=== PATIENT | male | born 1945 | race Caucasian/White ===

== ENCOUNTER → 2017-12-01 09:53 | Outpatient (CLI) | payer MEDICARE, BC ==
[2016-04-30 22:05] VITALS: BMI 31.8
[~2017-12-01 09:53] MED LIST: ASPIRIN81 MG PO; EFFIENT10 MG PO; GLUCOPHAGE1000 MG PO; HUMALOG 30100 UNITS/ SC; HYDROCHLOROTHIA25 MG; HYDROCHLOROTHIA25 MG PO; ICAPS AREDS1 TAB.SA PO; INVOKANA300 MG PO; LEVEMIR100 U/M1 SQ; LIPITOR40 MG PO; LOTREL 10-40 M1 EACH PO; PLAVIX75 MG PO; PRILOSEC20 MG PO; PROAIR HFA8.5 GM INH; TOPROL XL50 MG PO; TRIGLIDE160 MG PO
== END | disposition home or self-care (01) ==
LOC: D.CT 09:53
DX: C91.10 Chronic lymphocytic leukemia of B-cell type not having achieved remission (principal)

== ENCOUNTER 2018-10-04 09:34 | Outpatient (CLI) | payer MEDICARE, BC ==
[~2018-10-04] VITALS: Ht 193 cm; Wt 108.2 kg
--- NOTE | ~2018-10-04 | HEMODYNAMI ---
PATIENT:JESSICA CHURCH MEDICAL RECORD: [id number] : 43 LOCATION:DDaraCAT ADMISSION DATE: 10/04/18 Generatedon:10/04/201811:21 Patient name: JESSICA CHURCH Patient #: [id number] SSN: : 1945 Date of study: 10/04/2018 Page: Of Hemodynamic Procedure Report Patient Data Patient Demographics Procedure consent was obtained First Name: JESSICA Gender: Male Last Name: LYNNETTE : 1945 [facility] Initial: N Age: 73 year(s) Patient #: [id number] Race: Additional ID: [id number] Contact details [address]: [address] [place] [address] rd State: [place] City: [place] Zip code: [address] Past Medical History Allergies: No known allergies Admission Admission Data Admission Date: 10/04/2018 Admission Time: 9:34 Height (in.): 74 BSA: 2.31 (m2) Height (cm.): 187.96 BMI: 29.79 (kg/m2) Weight (lbs.): 232 Weight (kg.): 105.23 Lab Results Lab Result Date: 10/04/2018 Lab Result Time: 0:00 Biochemistry Name Units Result Min Max BUN mg/dl 27 --(----)-* 7 18 Creatinine mg/dl 1.1 --(--*-)-- 0.6 1.3 CBC Name Units Result Min Max Hematocrit % 32.2 *-(----)-- 42 54 Hemoglobin g/dl 10.4 *-(----)-- 13.5 17.5 Procedure Procedure Types Cath Procedure Diagnostic Procedure LHC LHC w/Coronaries w/Grafts Peripheral Cath Diagnostic Procedure Grain Operations Manager Peripheral Procedures Rgfsm-Ilxlmbe-Sjx-Off Procedure Description Procedure Date Procedure Date: 10/04/2018 Procedure Start Time: 11:08 Procedure End Time: 11:17 Procedure Staff Name Function Charles Van MD Performing Physician Evy Don RT Monitor Gumaro Bo RT Scrub Marta Carmona RN Nurse Procedure Data Cath Procedure Fluoroscopy Diagnostic fluoroscopy Total fluoroscopy Time: 1.7 time: 1.7 min min Diagnostic fluoroscopy Total fluoroscopy dose: 363 dose: 363 mGy mGy Contrast Material Contrast Material Type Amount (ml) Isovue 300 102 Entry Location Entry Primary Successful Side Size Upsize Upsize Entry Closure Succes sful Closure Location (Fr) 1 (Fr) 2 (Fr) Remarks Device Remarks Femoral Right 5 Fr Exoseal artery Estimated blood loss: 5 ml Diagnostic catheters Device Type Used For End Catheter Placement MULTIPACK Pigtail 5 Fr Procedure catheter MULTIPACK JL 4.0 5Fr Procedure catheter MULTIPACK 3DRC 5Fr Procedure catheter DIAGNOSTIC AR2 MOD 5 Fr Procedure catheter ([id number]) Procedure Complications No complications Procedure Medications Medication Administration Route Dosage 0.9% NaCl I.V. 100 ml/hr Oxygen etCO2 Nasal cannula 2 l/min Lidocaine 2% added to field 20 Heparin Flush Bag added to field 2 bags (1000units/500ml NS) Versed I.V. 2 mg Fentanyl I.V. 50 mcg Hemodynamics Rest BSA: 2.31 (m2) HGB: 10.4 (g/dl) O2 Consumption: Estimated: 261.11 (ml/min) O2 Co nsumption indexed: Estimated:113.03 (ml/min/m) Heart Rate: 65 (bpm) Snapshots Pre Cath Intra NCS Post Cath Vital Signs Time Heart Resp SPO2 etCO2 NIBP (mmHg) Rhythm Pain Sedation Rate (ipm) (%) (mmHg) Status Level (bpm) 11:02:39 59 10 98 33 130/60(104) NSR 0 (11) 10(A) , No pain 11:06:59 69 16 100 19.3 128/55(85) NSR 0 (11) 10(A) , No pain 11:11:17 63 18 100 36.4 111/48(93) NSR 0 (11) 9(A) , No pain 11:15:35 81 17 100 34.9 105/57(76) NSR 0 (11) 10(A) , No pain Medications Time Medication Route Dose Verified Delivered Reason Notes Eff ectiveness by by 11:06:38 0.9% NaCl I.V. 100 Charles Lozano used for ml/hr Carlota Carmona rubber attacher 11:06:44 Oxygen etCO2 2 Charles Marta used for Nasal l/min Carlota Carmona procedure cannula RN 11:06:49 Lidocaine 2% added 20ml Charles Charles for local to vial Carlota Van MD anesthetic field 11:06:54 Heparin Flush added 2 Charles Charles used for Bag to bags Carlota Van MD procedure (1000units/500ml field NS) 11:07:10 Versed I.V. 2 mg Charles Marta for Carlota Carmona sedation RN 11:07:16 Fentanyl I.V. 50 Charles Marta for mcg Carlota Carmona sedation cloth mercerizer back tender Log Time Note 10:28:46 Patient Height : 74 inches 10:28:49 Patient Weight : 232 lbs 10:28:52 Signed procedure consent form obtained from patient. 10:28:53 Diagnostic Cath status Elective 10:28:55 Time tracking: Regular hours (M-F 7:00 - 5:00) 10:29:00 Plan of Care:Hemodynamics will remain stable., Cardiac rhythm will remain stable., Comfort level will be maintained., Respiratory function will remain adequate., Patient/ family verbilizes understanding of procedure., Procedure tolerated without complication., Recovers from procedure without complications.. 10:29:36 Patient allergic to No known allergies 10:34:21 Lab Result : Creatinine 1.1 mg/dl 10:34:21 Lab Result : BUN 27 mg/dl 10:34:21 Lab Result : Hemoglobin 10.4 g/dl 10:34:21 Lab Result : Hematocrit 32.2 % 10:37:44 Gumaro Bo RT(R) sent for patient. Start room use. 10:50:44 H&P Date Dictated: 09/26/2018 Within 30 days and on chart., H&P Addendum completed by physician on day of procedure. (MUST COMPLETE FOR ALL OUTPATIENTS). 10:56:42 Patient received from Pre/Post Procedure Room to CCL 1 Alert and oriented. Tansferred to table in Supine position. 10:56:43 Warm blankets applied, and alix hugger turned on for patient comfort. 10:56:44 Correct patient and procedure confirmed by team. 10:56:44 ECG and BP/O2 sat monitors applied to patient. 11:01:28 Vital chart was started 11:04:28 Baseline sample Acquired. 11:04:35 Rhythm: atrial fibrillation 11:04:36 Full Disclosure recording started 11:04:37 Pre-procedure instructions explained to patient. 11:04:37 Pre-op teaching completed and patient verbalized understanding. 11:04:39 Family in patients room. 11:04:40 Patient NPO since Midnight. 11:04:43 Is patient on blood thinner?Yes 11:05:04 ELIQUIS HELD SINCE TUESDAY 11:05:06 Patient diabetic? Yes. 11:05:13 PATIENT TAKES INSULIN 11:05:19 Previous problem with sedation/anesthesia? No ? 11:05:20 Snore? Yes 11:05:21 Sleep apnea? Yes 11:05:21 Deviated septum? No 11:05:22 Opens mouth fully? No 11:05:23 Sticks out tongue? Yes 11:05:25 Airway obstruction? No ? 11:05:26 Dentures? No ? 11:05:29 Pre procedure: right dorsailis pedis pulse 1+ Palpable, but thready & weak; easily obliterated 11:05:34 IV patent on arrival in left hand with 0.9% NaCl at O. 11:05:36 --------ALL STOP TIME OUT------ 11:05:37 Final Timeout: patient, procedure, and site verified with staff and physician. All members of the team are in agreement. 11:05:38 Right groin site verified by team. 11:05:47 Maximum allowable Isovue 300 dose 300.ml. Physician notified. (300ml for normal creatinines. For patients with creatinine of 1.7 or higher multiply weight(kg) x 5 divided by creatinine.) 11:05:50 Fire Safety Assessment: A--An alcohol-based skin anteseptic being used preoperatively., C--Open oxygen or nitrous oxide is being used., D--An ESU, laser, or fiber-optic light is being used. 11:05:54 Physical assessment completed. ASA score P 2 - A patient with mild systemic disease as per Charles Van MD. 11:05:57 Sedation plan: IV Moderate Sedation Medication:Versed, Fentanyl 11:06:38 0.9% NaCl 100 ml/hr I.V. was administered by Marta Carmona RN; used for procedure; 11:06:44 Oxygen 2 l/min etCO2 Nasal cannula was administered by Marta Carmona RN; used for procedure; 11:06:49 Lidocaine 2% 20ml vial added to field was administered by Charles Van MD; for local anesthetic; 11:06:49 Use device set Femoral Dx 11:06:52 ACIST Syringe (66683) opened to sterile field. 11:06:53 Bag Decanter (2002S) opened to sterile field. 11:06:54 Heparin Flush Bag (1000units/500ml NS) 2 bags added to field was administered by Charles Van MD; used for procedure; 11:07:05 Medline Cath Pack ([id number]) opened to sterile field. 11:07:06 DIAGNOSTIC WIRE .035 260cm J wire (549206) opened to sterile field. 11:07:10 Versed 2 mg I.V. was administered by Marta Carmona RN; for sedation; 11:07:15 ACIST Hand Control (37142) opened to sterile field. 11:07:15 ACIST Manifold (22446) opened to sterile field. 11:07:16 Fentanyl 50 mcg I.V. was administered by Marta Carmona RN; for sedation; 11:07:17 DIAGNOSTIC Multipack 5Fr catheter set ([id number]) opened to sterile field. 11:07:23 Tegaderm 4 x 4 (1626W) opened to sterile field. 11:08:36 SHEATH 5FR Lawai (GAD406) opened to sterile field. 11:08:40 Procedure started. 11:08:42 Zero performed for pressure channel P1 11:08:45 Local anesthetic to right femoral artery with Lidocaine 2% by Charles Van MD.INITIAL ACCESS ONLY 11:08:57 A 5 Fr sheath was inserted into the Right Femoral artery 11:09:32 Zero performed for pressure channel P1 11:09:44 A MULTIPACK Pigtail 5 Fr catheter was advanced over the wire and used for Procedure. 11:09:49 LV gram done using HUGO 11:09:51 Injector settings: Ml/sec: 10, Volume: 20, 11:10:06 Procedure type changed to Cath procedure, Diagnostic procedure, LHC, LHC w/Coronaries w/Grafts, Peripheral Cath Diagnostic Procedure, Grain Operations Manager Peripheral Procedures, Gxame-Hnzfktr-Uuu-Off 11:10:15 EF : 30 % 11:10:23 CATH PULLED DOWN FOR AFRO 11:10:49 Abdominal angiogram w/ runoff was performed. 11:11:10 Right leg runoff performed. 11:11:12 Left leg runoff performed. 11:11:15 Catheter removed. 11:11:45 A MULTIPACK JL 4.0 5Fr catheter was advanced over the wire and used for Procedure. 11:12:32 LCA angiography performed. 11:12:33 Catheter removed. 11:12:37 A MULTIPACK 3DRC 5Fr catheter was advanced over the wire and used for Procedure. 11:13:03 GRIFFIN to LAD angiography performed. 11:13:19 RCA angiography performed. 11:13:20 Catheter removed. 11:13:27 A DIAGNOSTIC AR2 MOD 5 Fr catheter ([id number]) was advanced over the wire and used for Procedure. 11:14:28 SVG to RCA occluded. 11:14:30 SVG to Circ occluded. 11:14:32 SVG to Diag occluded. 11:14:34 Catheter removed. 11:14:35 EXOSEAL 5Fr (EX500) opened to sterile field. 11:15:06 Sheath removed intact; hemostasis achieved with Exoseal to the Right Femoral artery. 11:15:09 Procedure ended.(Physican Out) 11:15:51 Fluoroscopy time 01.70 minutes. 11:15:54 Fluoroscopy dose: 363 mGy 11:15:54 Flurop Dose total: 363 11:15:57 Contrast amount:Isovue 300 102ml. 11:16:00 Sharps counted by scrub and verified by R.N. 11:16:03 Post-op/insertion site Right Femoral artery dressed using a 4 x 4 and Tegaderm. 11:16:10 Post-procedure physical assessment completed. ASA score P 2 - A patient with mild systemic disease as per Charles Van MD. 11:16:28 PATIENT IN AND OUT OF AFIB 11:16:32 Estimated blood loss: 5 ml 11:16:34 Post procedure instruction explained to patient.Patient verbalizes understanding. 11:16:34 Patient needs reinforcement of post procedure teaching. 11:17:15 Procedure and supply charges have been captured, reviewed, submitted and are correct. 11:17:22 Procedure Complication : No complications 11:17:24 Vital chart was stopped 11:17:24 See physician's report for complete and final results. 11:17:43 Report given to Pre/Post Procedure Room. 11:17:46 Patient transfered to Pre/Post Procedure Room with Bed. 11:17:47 Procedure ended. 11:17:47 Full Disclosure recording stopped 11:18:06 End room use (Document Last) Device Usage Item Name Manufacture Quantity Catalog Hospital Part Current Minimal L ot# / Number Charge Number Stock Stock Serial# Code ACIST Acist 1 83387 167010 582686 488970 20 Syringe Medical (93054) Systems Inc Bag Microtek 1 2001S 495855 03075 154145 5 Decanter Medical Inc. () Medline Medline 1 [id number] 075659 24205 429563 5 Cath Pack ([id number]) DIAGNOSTIC St Antelmo 1 926585 778666 728360 925068 30 WIRE .035 260cm J wire (637529) ACIST Hand Acist 1 04021 472978 599460 517299 5 Control Medical (06443) Systems Inc ACIST Acist 1 65286 274210 042640 819227 5 Manifold Medical (79836) Systems Inc DIAGNOSTIC Cardinal 1 [id number] 208858 50231 010146 30 Multipack Health 5Fr catheter set (BR9668) Tegaderm 4 3M 1 1626W 049095 145717 808477 5 x 4 (1626W) SHEATH 5FR Terumo 1 ZQZ909 950986 704079 535622 5 Lawai (TKE743) MULTIPACK Cardinal 1 759921 5 Pigtail 5 Health Fr catheter MULTIPACK Cardinal 1 193462 5 JL 4.0 5Fr Health catheter MULTIPACK Cardinal 1 933045 5 3DRC 5Fr Health catheter DIAGNOSTIC Cardinal 1 [id number] 955600 654138 840629 20 AR2 MOD 5 Health Fr catheter ([id number]) EXOSEAL 5Fr Cardinal 1 EX500 738293 470631 260683 10 (EX500) Health Signature Audit [place] Stage Time Signature Unsigned Intra-Procedure 10/04/2018 Evy Don 11:21:15 AM RT(R) Signatures Monitor : Evy Don Signature : RT Date : Time : [facility] [address] [place] [address]
[2018-10-04] MEDS ORDERED: FUROSEMIDE40 MG PO (09:54)
[2018-10-04] MEDS ORDERED: FLOMAX0.4 MG PO (09:55)
[2018-10-04] MEDS ORDERED: TOUJEO SOL300 UNIT/1 SC (09:55)
[2018-10-04] MEDS ORDERED: BETAPACE 80 MG80 MG PO (09:55)
[2018-10-04] MEDS ORDERED: K-DUR20 MEQ PO (09:55)
[2018-10-04 10:09] VITALS: BP 113/46; Ht 193 cm; Wt 108.2 kg
[2018-10-04 10:22] LABS: HEMATOCRIT 32.2 % (42.0-54.0); HEMOGLOBIN 10.4 g/dL (13.5-17.5); MCH 29.5 pg (26.0-34.0); MCHC 32.3 g/dL (31.0-37.0); MCV 91.2 fL (80.0-100.0); MEAN PLATELET VOLUME 12.2 fL (7.4-10.4); PLATELET COUNT 163 10x3/uL (130-400); RBC 3.53 10x6/uL (4.20-6.10); WBC 2.9 10x3/uL (4.8-10.8)
[2018-10-04 10:30] LABS: ANION GAP 10.4 mmol/L (8-16); CALCIUM 10.1 mg/dL (8.5-10.1); CARBON DIOXIDE 27.7 mmol/L (21.0-32.0); CREATININE - SERUM 1.1 mg/dL (0.6-1.3); POTASSIUM - SERUM 4.1 mmol/L (3.5-5.1)
[2018-10-04 10:58] LABS: INR 1.31 (0.85-1.17); PROTIME 15.7 SECONDS (11.6-15.0)
--- NOTE | 2018-10-04 11:27 | NUR ---
PT ARRIVED BY STRETCHER. PLACED ON MONITORS. ASSESSMENT COMPLETED. FAMILY AT BEDSIDE.
[2018-10-04 11:35] LABS: ANISOCYTOSIS OCC; EOSINOPHILS 2 % (0-7); LYMPHOCYTES 27 % (15-50); MONOCYTES 6 % (2-11); NEUTROPHILS 65 % (40-80); PLATELET ESTIMATE NORMAL
--- NOTE | 2018-10-04 11:45 | NUR ---
RIGHT GROIN DRESSING C/D/I. NO S/S OF HEMATOMA NOTED. VSS. RIGHT PEDAL PULSE PALPABLE. FAMILY AT BEDSIDE.
--- NOTE | 2018-10-04 12:33 | NUR ---
PT'S HEAD OF BED INC TO 30 DEGREES. RIGHT GROIN DRESSING C/D/I. NO S/S OF HEMATOMA NOTED. VSS. FAMILY AT BEDSIDE. PT SET UP WITH SANDWICH TRAY AND DRINK.
--- NOTE | 2018-10-04 13:10 | NUR ---
RIGHT ARM PIV D/C'D WITH CATH TIP INTACT. PT TOLERATED WELL. RIGHT GROIN DRESSING C/D/I. NO S/S OF HEMATOMA NOTED. PT INSTRUCTED TO GET DRESSED. FAMILY AT BEDSIDE.
--- NOTE | 2018-10-04 13:25 | NUR ---
DISCUSSED DISCHARGE INSTRUCTIONS WITH PT AND PT'S FAMILY. THEY VOICED UNDERSTANDING. RIGHT GROIN DRESSING C/D/I. NO S/S OF HEMATOMA NOTED. PT TO RESTOOM AND VOIDED WITHOUT DIFFICULTY.
--- NOTE | 2018-10-04 13:30 | NUR ---
PT TAKEN OUT TO VEHICLE BY WHEELCHAIR. NO S/S OF DISTRESS NOTED. ALL BELONGINGS AND PAPERWORK IN HAND.
--- NOTE | 2018-10-06 15:12 | OP ---
PATIENT NAME: JESSICA CHURCH MEDICAL RECORD: [id number] :43 LOCATION:D.CAT ADMISSION DATE: SURGEON: DOMINGO CHAMPION MD DATE OF OPERATION: 10/04/2018 PROCEDURES: 1. Left heart catheterization. 2. Selective coronary angiography. 3. Left ventriculogram. 4. Vein graft angiography. 5. GRIFFIN angiography. 6. Aortofemoral runoff. 7. Abdominal aortography. INDICATION: Angina, coronary artery disease, claudication, and peripheral vascular disease. PROCEDURE IN DETAIL: After informed consent was obtained and after a detailed description of the risks, benefits as well as alternative therapies, the patient elected to proceed with angiogram and heart catheterization. The right femoral area was prepped and draped in normal sterile fashion. Right femoral artery was cannulated via modified Seldinger technique with placement of 6-Irish sheath. All catheters exchanged through this sheath. FINDINGS: The left ventriculogram was performed in standard 30-degree HUGO view reveals hypokinesis throughout all segments. Overall ejection fraction in the 30% range. SELECTIVE CORONARY ANGIOGRAPHY: 1. Left main is closed. 2. Left anterior descending is closed. 3. Left circumflex is closed. 4. Right coronary artery is closed. 5. GRIFFIN to the LAD is widely patent and distal LAD is widely patent, this fills the entire RCA and circumflex system. 6. All vein grafts are closed times 3. Abdominal aortography was performed. The catheter was pulled down for aortofemoral runoff. Abdominal aortography reveals no significant abdominal aortic disease, no dissection or aneurysm formation. RIGHT LEG: A. Iliac: The common internal and external iliacs have mild irregularities, but no flow-limiting stenosis. B. Femoral system: The common superficial and deep femoral have mild irregularities, but no flow-limiting stenosis. C. Popliteal and infrapopliteal vessels are patent, although diffusely diseased with preserved 3-vessel runoff to the foot. LEFT LEG: A. Iliac: The common internal and external iliacs have mild irregularities, but no flow-limiting stenosis. B. Femoral system: The common superficial and deep femoral have mild irregularities, but no flow-limiting stenosis. C. Popliteal and infrapopliteal vessels are patent, although diffusely diseased OPERATIVE REPORT [id number] JESSICA CHURCH with preserved 3-vessel runoff to the foot. OVERALL IMPRESSION: 1. Patency of the GRIFFIN only to the LAD with closure of all previous vein grafts. 2. Ischemic cardiomyopathy, ejection fraction 30%. 3. Minimal peripheral vascular disease is present, but no flow-limiting stenosis. TRANSINT:[id number] Voice Confirmation ID: [id number] DOCUMENT ID: [id number] DOMINGO CHAMPION MD at 1512 CC: [id number] DICTATION DATE: 10/04/18 1119 HVAC/R SERVICE TECHNICIAN: 10/04/18 1225 DEP CLI 10/04/18 [id number] [place] [address]
== END 2018-10-04 13:30 | disposition home or self-care (01) ==
LOC: D.CATH 09:34
PROVIDERS: ATTEND Internal Medicine Interventional Cardiology
DX: I25.119 Atherosclerotic heart disease of native coronary artery with unspecified angina pectoris (principal); I25.719 Atherosclerosis of autologous vein coronary artery bypass graft(s) with unspecified angina pectoris; I25.5 Ischemic cardiomyopathy; I70.213 Atherosclerosis of native arteries of extremities with intermittent claudication, bilateral legs; Z01.812 Encounter for preprocedural laboratory examination

== ENCOUNTER 2018-11-01 17:14 | Inpatient (IN) | payer MEDICARE, BC ==
[~2018-11-01] VITALS: Ht 193 cm; Wt 123.8 kg
[~2018-11-01 17:14] MED LIST changes: +BETAPACE 80 MG80 MG PO; +FLOMAX0.4 MG PO; +FUROSEMIDE40 MG PO; +K-DUR20 MEQ PO; +TOUJEO SOL300 UNIT/1 SC
[2018-11-01 18:19] LABS: HEMATOCRIT 33.3 % (42.0-54.0); HEMOGLOBIN 11.5 g/dL (13.5-17.5); MCH 30.3 pg (26.0-34.0); MCHC 34.5 g/dL (31.0-37.0); MCV 87.9 fL (80.0-100.0); RBC 3.79 10x6/uL (4.20-6.10); RDW 16.2 % (11.5-14.5); WBC 3.2 10x3/uL (4.8-10.8)
[2018-11-01 18:27] LABS: INR 2.52 (0.85-1.17); PROTIME 26.4 SECONDS (11.6-15.0)
[2018-11-01 18:34] LABS: PLATELET COUNT 120 10x3/uL (130-400)
[2018-11-01 18:47] LABS: ALBUMIN 2.4 g/dL (3.4-5.0); ALKALINE PHOSPHATASE 333 U/L (46-116); ALT (SGPT) 482 U/L (10-68); CALC OSMOLALITY 301 mosm/kg (275-300); CALCIUM 10.4 mg/dL (8.5-10.1); CHLORIDE - SERUM 102 mmol/L (98-107); CREATININE - SERUM 1.6 mg/dL (0.6-1.3); POTASSIUM - SERUM 4.4 mmol/L (3.5-5.1); PROTEIN - SERUM 4.8 g/dL (6.4-8.2); SODIUM 135 mmol/L (136-145); UREA NITROGEN 80 mg/dL (7-18); eGFR NON AFRICAN AMERICAN 45 mL/min (90-120)
[2018-11-01 18:53] LABS: CKMB 0.9 U/L (0.0-3.6); CREATINE KINASE 11 UL (21-232); PRO BNP 3340 pg/mL (0-125); TROPONIN-I 0.029 ng/mL (0.000-0.060)
[2018-11-01 18:54] LABS: GLUCOSE 246 mg/dL (74-106)
[2018-11-01 19:00] LABS: LYMPHOCYTES 25 % (15-50); MONOCYTES 1 % (2-11); NEUTROPHILS 74 % (40-80); PLATELET ESTIMATE DECREASED
--- NOTE | 2018-11-01 19:03 | NUR ---
NURSE LOOKED AT PT LAB RESULTS WITH NANCY CEJA, RESULTS SHOWED HIGH TROPONIN, WHEN LOOKING BACK AT PT CHART A FEW MINUTES LATER, THE RESULTS CHANGED AND TROPONIN WAS NORMAL. LAB CALLED TO CLARIFY, LAB STATES THEY ONLY RAN HIS LABS ONE TIME AND TROPONIN WAS 0.029. EDP AWARE, ORDERED NEW LAB DRAW.
[2018-11-01 19:15] VITALS: BP 127/49
[2018-11-01 19:40] LABS: APPEARANCE CLEAR (CLEAR); BILIRUBIN NEGATIVE (NEGATIVE); COLOR YELLOW (YELLOW); GLUCOSE NEGATIVE (NEGATIVE); KETONE NEGATIVE (NEGATIVE); NITRITE NEGATIVE (NEGATIVE); PROTEIN NEGATIVE (NEGATIVE); SPECIFIC GRAVITY 1.015 (1.005-1.020); UROBILINOGEN NORMAL (NORMAL)
[2018-11-01 19:58] LABS: HEMATOCRIT 32.8 % (42.0-54.0); HEMOGLOBIN 11.2 g/dL (13.5-17.5); MCH 30.4 pg (26.0-34.0); MCHC 34.1 g/dL (31.0-37.0); MCV 88.9 fL (80.0-100.0); PLATELET COUNT 107 10x3/uL (130-400); RBC 3.69 10x6/uL (4.20-6.10); RDW 16.4 % (11.5-14.5); WBC 3.2 10x3/uL (4.8-10.8)
[2018-11-01 20:08] LABS: INR 2.8 (0.85-1.17); PROTIME 28.7 SECONDS (11.6-15.0)
[2018-11-01 20:09] LABS: APTT 49.7 SECONDS (22.8-39.4)
[2018-11-01 20:57] LABS: CKMB 0.5 U/L (0.0-3.6); CREATINE KINASE 8 UL (21-232); PRO BNP 3868 pg/mL (0-125); TROPONIN-I 0.033 ng/mL (0.000-0.060)
[2018-11-01 21:00] LABS: LYMPHOCYTES 24 % (15-50); NEUTROPHILS 76 % (40-80); PLATELET ESTIMATE DECREASED
[2018-11-01 21:20] LABS: ALBUMIN 2.3 g/dL (3.4-5.0); ANION GAP 12.9 mmol/L (8-16); BILIRUBIN - TOTAL 3.84 mg/dL (0.2-1.3); CALCIUM 10.2 mg/dL (8.5-10.1); CARBON DIOXIDE 22.5 mmol/L (21.0-32.0); CREATININE - SERUM 1.6 mg/dL (0.6-1.3); POTASSIUM - SERUM 4.4 mmol/L (3.5-5.1); PROTEIN - SERUM 4.6 g/dL (6.4-8.2)
[2018-11-01 22:03] LABS: AMYLASE - SERUM 28 U/L (25-115); LIPASE 207 U/L (73-393)
[2018-11-01 22:04] VITALS: BP 125/62
--- NOTE | 2018-11-01 22:51 | NUR ---
PT'S IV INFUSION OF MERREM FINISHED.
[2018-11-01] MEDS ORDERED: ELIQUIS5 MG PO (23:54)
[2018-11-01 23:55] VITALS: BP 129/67; BMI 29.0
[2018-11-02 06:38] LABS: HEMATOCRIT 30.2 % (42.0-54.0); MCH 29.3 pg (26.0-34.0); MCHC 33.1 g/dL (31.0-37.0); MCV 88.6 fL (80.0-100.0); MEAN PLATELET VOLUME 11.8 fL (7.4-10.4); RBC 3.41 10x6/uL (4.20-6.10); RDW 16.6 % (11.5-14.5); WBC 3.2 10x3/uL (4.8-10.8)
[2018-11-02 06:46] LABS: PLATELET COUNT 84 10x3/uL (130-400)
[2018-11-02 06:57] LABS: ANION GAP 12.7 mmol/L (8-16); BILIRUBIN - DIRECT 2.68 mg/dL (0.00-0.30); BILIRUBIN - INDIRECT 0.9 mg/dL (0.00-1.00); BILIRUBIN - TOTAL 3.58 mg/dL (0.2-1.3); CALCIUM 9.4 mg/dL (8.5-10.1); CARBON DIOXIDE 22.5 mmol/L (21.0-32.0); CREATININE - SERUM 1.5 mg/dL (0.6-1.3); POTASSIUM - SERUM 4.2 mmol/L (3.5-5.1); PROTEIN - SERUM 3.9 g/dL (6.4-8.2)
--- NOTE | 2018-11-02 07:00 | NUR ---
INITIAL ROUNDING, PATIENT IS AWAKE AND RESTING IN BED, IVF INFUSING TO THE LEFT AC. O2 VIA NC IN USE AT 2 LPM, SPOUSE AT BEDSIDE, PATIENT DENIES PAIN, CALL LIGHT IN REACH.
--- NOTE | 2018-11-02 08:02 | NUR ---
PATIENT GOING FOR CT AT THIS TIME.
--- NOTE | 2018-11-02 08:39 | NUR ---
CALLED AND SPOKE TO PREET TESFAYE REQUESTING SOMETHING FOR NAUSEA FOR THE PATIENT
[2018-11-02 08:52] VITALS: BP 130/65
[2018-11-02 09:09] LABS: ANISOCYTOSIS OCC; LYMPHOCYTES 10 % (15-50); MONOCYTES 19 % (2-11); NEUTROPHILS 71 % (40-80); PLATELET ESTIMATE DECREASED; PLATELET MORPHOLOGY GIANT PLTS PRESENT
[2018-11-02 09:26] LABS: % SATURATION 10 % (15-55); IRON 15 ug/dl (35-150); TOTAL IRON BIND CAPACITY 147 ug/dl (260-445); UNSAT IRON BIND CAPACITY 132 ug/dl (150-375)
[2018-11-02 10:55] VITALS: BMI 28.9
--- NOTE | 2018-11-02 11:03 | NUR ---
1050- PAGED [phone], 1053-DR CHAMPION RETURNED PAGED, NOTIFIED OF CONSULT 1054- CALLED [phone], SPOKE TO SAGE, REPORTED THE CONSULT AND SHE STATES, DR MOYER IS VOCATIONAL COORDINATOR AND WILL BE THE ONE TO SEE THE PATIENT TODAY 1058- CALLED [phone] AND WAS GIVEN THE PAGER NUMBER [phone] GALVEZ, NO RETURN CALL THUS FAR, [phone].
[2018-11-02 15:51] VITALS: Ht 193 cm; Wt 123.8 kg
[2018-11-02 17:53] VITALS: BP 115/41
--- NOTE | 2018-11-02 19:40 | NUR ---
PT COMPLAINED OF NAUSEA. IV ZOFRAN GIVEN PER AUG. WCTM
--- NOTE | 2018-11-02 19:40 | NUR ---
PT SITTING UP IN BED. CALL LIGHT IN REACH. DENIES NEEDS OR PAIN AT THIS TIME. BED IN LOW. SIDE RAILS X2. LUNGS DIMINISHED. BOWEL ACTIVE X4. A/O X4 JUST VERY SLEEPY. AT BEDSIDE. O2 ON 2L VIA NC. LEFT AC IV RUNNING NS AT 100. BED ALARM ON. RESP EVEN AND UNLABORED. WILL CONTINUE TO MONITOR.
[2018-11-02 19:52] VITALS: BP 118/47
--- NOTE | 2018-11-02 21:18 | NUR ---
ASSISTED PT TO AND FROM BATHROOM VIA WALKER. PT BACK IN BED. URINATED 300ML. CALL LIGHT IN REACH. TM
--- NOTE | 2018-11-03 03:22 | NUR ---
TOILETED PT. BACK IN BED CALL LIGHT IN REACH. DENIES NEEDS OR PAIN AT THIS TIME. BED IN LOW SIDE RAILS X2. WCTM
--- NOTE | 2018-11-03 03:24 | NUR ---
I have reviewed this patient and I concur with the Shift Assessment completed by the Licensed Practical Nurse today this shift.
[2018-11-03 04:00] VITALS: BP 110/44
--- NOTE | 2018-11-03 05:59 | NUR ---
TOILETED PT. PT LEFT FOR PROCEDURE VIA WHEELCHAIR WITH HOSPITAL STAFF.
--- NOTE | 2018-11-03 07:45 | NUR ---
PATIENT OF FLOOR FOR SCAN AT SHIFT CHANGE.
[2018-11-03 08:54] VITALS: BP 112/45
[2018-11-03 09:05] LABS: BASOPHILS 0 % (0-2); EOSINOPHILS 0 % (0-7); HEMOGLOBIN 9.5 g/dL (13.5-17.5); LYMPHOCYTES 11.4 % (15-50); MCH 29.3 pg (26.0-34.0); MCHC 32.8 g/dL (31.0-37.0); MCV 89.5 fL (80.0-100.0); MEAN PLATELET VOLUME 13.3 fL (7.4-10.4); MONOCYTES 30.5 % (2-11); NEUTROPHILS 58.1 % (40-80); RBC 3.24 10x6/uL (4.20-6.10); RDW 16.5 % (11.5-14.5); WBC 3.5 10x3/uL (4.8-10.8)
[2018-11-03 09:09] LABS: PLATELET COUNT 64 10x3/uL (130-400)
[2018-11-03 09:10] LABS: ALBUMIN 1.7 g/dL (3.4-5.0); ANION GAP 12.3 mmol/L (8-16); BILIRUBIN - TOTAL 5.13 mg/dL (0.2-1.3); CALCIUM 9.3 mg/dL (8.5-10.1); CARBON DIOXIDE 22.6 mmol/L (21.0-32.0); PROTEIN - SERUM 3.4 g/dL (6.4-8.2)
[2018-11-03 09:19] LABS: POTASSIUM - SERUM 4.9 mmol/L (3.5-5.1)
[2018-11-03 09:33] LABS: PLATELET ESTIMATE DECREASED
--- NOTE | 2018-11-03 10:09 | MORECARE ---
CASE MANAGEMENT DISCHARGE SUMMARY PATIENT: JESSICA CHURCH UNIT: [id number] ADM DATE: 11/01/18 AGE: 73 : 44 SEX: M ROOM/BED: D.1211 AUTHOR: PAOLA PERALTA PHYSICIAN: REFERRING PHYSICIAN: HIPOLITO WALTERS MD DATE OF SERVICE: 11/03/18 Discharge Plan Patient Name: JESSICA CHURCH Facility: [facility]:[place] : 1945 Planned Disposition: Anticipated Discharge Date: Discharge Date: Expected LOS: Initial Reviewer: [email or web address] Initial Review Date: 11/03/2018 Generated: 11/03/18 11:09 am Patient Name: JESSICA CHURCH Page 38021 at 1009 All edits/amendments must be made on the electronic document DICTATION DATE: 11/03/18 1009 TERMITE TECHNICIAN: NORA 11/03/18 1009 RPT#: [id number] DC DATE: STATUS: ADM IN [facility] [address] [place] [address] END OF REPORT
--- NOTE | 2018-11-03 10:18 | MORECARE ---
CASE MANAGEMENT DISCHARGE SUMMARY PATIENT: JESSICA CHURCH UNIT: [id number] ADM DATE: 11/01/18 AGE: 73 : 44 SEX: M ROOM/BED: D.1211 AUTHOR: PAOLA PERALTA PHYSICIAN: REFERRING PHYSICIAN: HIPOLITO WALTERS MD DATE OF SERVICE: 11/03/18 Discharge Plan Patient Name: JESSICA CHURCH Facility: [facility]:[place] : 1945 Planned Disposition: Anticipated Discharge Date: Discharge Date: Expected LOS: Initial Reviewer: [email or web address] Initial Review Date: 11/03/2018 Generated: 11/03/18 11:18 am Comments DCP- Discharge Planning Updated by [email or web address]: Radha Woods on 11/03/18 9:[address] Patient Name: JESSICA CHURCH Admission Status: ER Accout number: [id number] Admission Date: 11-01-2018 : 1945 Admission Diagnosis: Attending: HIPOLITO WALTERS Current LOS: 2 Anticipated DC Date: Planned Disposition: Primary Insurance: MEDICARE A & B Discharge Planning Comments: CM MET WITH PATIENT AND HIS DAUGHTER CAMERON ABOUT DC PLANNING/NEEDS. CAMERON STATES DOESN'T KNOW IF ANY NEEDS AT THIS TIME. SHE SAID IF HE CONTINUES TO BE THIS WEAK HE MAY NEED IPR OR HH. CM WILL FOLLOW AND ASSIST NEEDED. CAMERON ALSO STATES HER FATHER HAS LEUKEMIA AND HAD CHEMO ABOUT A MONTH AGO. STATES HE LIVES AT HOME WITH HIS GRACIELA. Perlite Grinder: Radha Woods DCPIA - Discharge Planning Initial Assessment Updated by [id number]: Radha Woods on 11/03/18 10:10 am * PCP [facility] * Pharmacy [facility] * Preadmission Environment Home with Family * ADLs Independent * Equipment Cane CPAP Walker * Other Equipment CHAIR LIFT. * List name and contact numbers for known caregivers / representatives who currently or will assist patient after discharge: GRACIELA, , * Community resources currently utilized None * Has this patient been hospitalized within the prior 30 days at any hospital? No Last DP export: 11/03/18 9:09 a Patient Name: JESSICA CHURCH Page 34378 at 1018 All edits/amendments must be made on the electronic document DICTATION DATE: 11/03/181016 SINGLE NEEDLE OPERATOR: NORA 11/03/18 1017 RPT#: [id number] DC DATE: STATUS: ADM IN [facility] [address] [place] [address] END OF REPORT
[2018-11-03 13:06] VITALS: BP 106/45
[2018-11-03 15:11] LABS: FOLATE (FOLIC ACID) - SERUM >20.0 ng/mL (>3.0)
--- NOTE | 2018-11-03 16:42 | EC ---
PATIENT:JESSICA CHURCH DATE OF SERVICE: 11/01/18 SEX: M MEDICAL RECORD: [id number] DATE OF : 43 LOCATION:D.M3 D.121 AGE OF PATIENT: 73 ADMISSION DATE: 11/01/18 REFERRING PHYSICIAN: INTERPRETING PHYSICIAN: DOMINGO VAN MD ECHOCARDIOGRAM REPORT ECHO CHARGES 4 ECHO COMPLETE Date: 11/02/18 CLINICAL DIAGNOSIS: CHF ECHOCARDIOGRAPHIC MEASUREMENTS (adult normal given) AC root (d.<3.7cm) 3.4 cm LV Septum d (<1.2 cm> 1.2 cm Valve Excursion 1.7 cm LV Septum (systole) 1.9 cm Left Atria (s.<4.0cm> 4.7 cm LVPW d(<1.2cm) 1.5 cm RV (d.<2.3cm) 2.8 cm LVPW (sytole) 1.8 cm LV diastole(<5.6CM) 6.6 cm MV E-F(>70mm/sec) cm LV systole 4.2 cm LVOT Diameter 2.2 cm MV exc.(>10mm) cm Est.ejection fraction (50-75%) % DOPPLER: LVIT cm/sec A 76.0 cm/sec E 104 cm/sec LA cm/sec RVSP 24.1 mmHg LVOT 110 cm/sec AOP1/2T m/s Asc. Ao 159 cm/sec RVOT 111 cm/sec RA cm/sec PA 121 cm/sec AV Gradient Peak 10.1 mmHg AV Mean 5.1 mmHg AV Area 2.2 cm MV Gradient Peak 5.9 mmHg MV Mean 2.0 mmHg MV Area cm COMMENTS: Sausage Meat Trimmer: Amee ESCOTODSOE Sheet Tailer: 1 Dr. Van TAPE# PACS Pericardial Effusion N DATE OF SERVICE: 11/02/2018 ECHOCARDIOGRAM DATE OF SERVICE: 11/02/2018 FINDINGS: 1. Left ventricular chamber size is mildly dilated. Left ventricular systolic function is mildly reduced, overall ejection fraction in the 45% range. 2. Left atrium is enlarged at 4.7 cm. Right atrium and right ventricular ECHOCARDIOGRAM REPORT [id number] JESSICA CHURCH chamber sizes are as well mildly dilated. 3. Valvular structures have normal structure and motion. 4. Doppler interrogation reveals trace mitral regurgitation. No other valvular insufficiency or stenosis. Pulmonary systolic pressure is normal at 24 mmHg. 5. No evidence of pericardial effusion or left ventricular thrombus. TRANSINT:[id number] Voice Confirmation ID: [id number] DOCUMENT ID: [id number] DOMINGO VAN MD at 1642 CC: [id number] DICTATION DATE: 11/02/18 1218 FUND DEVELOPMENT MANAGER: 11/02/18 1233 ADM IN [id number] [place] [address]
--- NOTE | 2018-11-03 16:42 | CN ---
PATIENT NAME:JESSICA MENEZES MEDICAL RECORD: [id number] : 43 LOCATION:D. D.1211 ADMIT DATE: 11/01/18 ACCOUNT: [id number] CONSULTING PHYSICIAN: DOMINGO CHAMPION MD REFERRING PHYSICIAN: HIPOLITO WALTERS MD DATE OF CONSULTATION: 11/02/2018 CARDIOLOGY CONSULTATION DATE OF SERVICE: 11/02/2018 DIAGNOSES: 1. Shortness of breath, dyspnea on exertion. 2. Cardiomyopathy. 3. Coronary artery disease. 4. Previous percutaneous transluminal coronary angioplasty stent. 5. Paroxysmal atrial fibrillation. 6. Cholecystitis. 7. Hyperlipidemia. 8. Insulin-dependent diabetes. 9. Chronic obstructive pulmonary disease. 10. Eliquis anticoagulation. HISTORY OF PRESENT ILLNESS: Mr. Menezes presents with shortness of breath, dyspnea on exertion, found to have cholecystitis with possible impending sepsis. He does have a cardiac history, history of previous PTCA stent, last being 2015. He has not had any anginal symptomatology. His EKG is with no acute changes. He maintained sinus rhythm on his sotalol. He is as well on Eliquis anticoagulation. Echocardiogram revealed ejection fraction in the 45% range with only mild mitral regurgitation. PHYSICAL EXAMINATION: GENERAL APPEARANCE: Well-nourished, well-developed, appears stated age. Level of distress, comfortable. PSYCHIATRIC: Mental status, alert, normal affect. Orientation, oriented to time, place and person. EYES: Lids and conjunctiva, noninjected. No discharge, no pallor. ENT: Lips, teeth, gums, normal dentition. Oropharynx, no cyanosis, no pallor. NECK: Carotid arteries, bilateral normal upstroke, no bruits, no thrills. JUGULAR VEINS: No jugular venous pressure or distention. CERVICAL LYMPH NODES: Nontender, nonenlarged. THYROID: Not enlarged. Nontender. No nodules. LUNGS: Respiratory effort, unlabored. CHEST: Normal curvature. No thoracic deformity. No chest wall tenderness. Percussion, resonant. Auscultation, clear. No wheezes, no rales, no rhonchi. CARDIOVASCULAR: Precordial exam, nondisplaced. No heaves or pericardial thrills. Rate and rhythm, regular. Heart sounds, normal S1, normal S2. No S3, no gallop, no rub. Systolic murmur, not heard. Diastolic murmur, not heard. EXTREMITIES: No cyanosis, no edema. Peripheral pulses, full and equal in all extremities, except as noted. No bruits appreciated. ABDOMEN: Soft, nondistended. Normal aorta. No bruit. Nontender. No masses. Liver, nontender, no hepatomegaly. Spleen, nontender, no splenomegaly. MUSCULOSKELETAL: No joint tenderness. No joint swelling. No erythema. NEUROLOGICAL: Normal gait, normal strength, normal tone. SKIN: Warm and dry. CONSULT REPORT [id number] JESSICA MENEZES OVERALL IMPRESSION: Shortness of breath, dyspnea on exertion, most likely this is not cardiac at this time. Ejection fraction is only mildly reduced. No significant valvular heart disease, no anginal symptomatology and he maintained sinus rhythm. At this time, I would suggest continue his current medications including the sotalol, but can discontinue the Eliquis anticoagulation as he is maintaining sinus rhythm if he is in need of operative intervention for the cholecystitis. Other than the echocardiogram, no other cardiac workup treatment is necessary at this time. TRANSINT:[id number] Voice Confirmation ID: [id number] DOCUMENT ID: [id number] DOMINGO CHAMPION MD at 1642 CC: [id number] DICTATION DATE: 11/02/18 1220 PEDICAB DRIVER: 11/02/18 1252 ADM IN [place] [id number] [place] [id number]
[2018-11-03 16:46] VITALS: BP 112/52
[2018-11-03 17:08] LABS: HEPATITIS C ANTIBODY <0.1 S/CO RAT (0.0-0.9)
--- NOTE | 2018-11-03 19:06 | NUR ---
RECIEVED UP IN BED WITH EYES CLOSED AND SPOUSE AT BEDSIDE. EASILY AROUSES WITH VERBAL STIMULI. IV TO LEFT AC WITH NS AT 75CC/HR. GENERALIZED EDEMA TO ALL EXTREMITIES. ARMS ELEVATED. CRACKLES TO ALL LUNG GRANADO. TELEMETRY IN PLACE. EGG EVER ON BED AND SPOUSE STATES " HE'S RESTING SO MUCH BETTER WITH THAT ON THE BED". DENIES ANY NEEDS AT THIS TIME.
[2018-11-03 20:00] VITALS: BP 114/43
[2018-11-04 04:51] VITALS: BP 98/44
[2018-11-04 07:09] LABS: BASOPHILS 0.3 % (0-2); EOSINOPHILS 0 % (0-7); HEMATOCRIT 28.3 % (42.0-54.0); HEMOGLOBIN 9.5 g/dL (13.5-17.5); IMMATURE GRANULOCYTES 0.3 % (0-5); LYMPHOCYTES 16.4 % (15-50); MCH 29.3 pg (26.0-34.0); MCHC 33.6 g/dL (31.0-37.0); MEAN PLATELET VOLUME 13.1 fL (7.4-10.4); MONOCYTES 24.1 % (2-11); NEUTROPHILS 58.9 % (40-80); PLATELET COUNT 68 10x3/uL (130-400); RBC 3.24 10x6/uL (4.20-6.10); RDW 16.3 % (11.5-14.5); WBC 3.2 10x3/uL (4.8-10.8)
[2018-11-04 07:10] LABS: MCV 87.3 fL (80.0-100.0)
--- NOTE | 2018-11-04 07:10 | NUR ---
PATIENT RECIEVED FROM PREVIOUS SHIFT RESTING IN BED WITH NO DISTRESS. RESPIRATIONS NON-LABORED. CL IN REACH, AT BEDSIDE
[2018-11-04 07:27] LABS: ALBUMIN 1.6 g/dL (3.4-5.0); ANION GAP 12.9 mmol/L (8-16); BILIRUBIN - TOTAL 6.23 mg/dL (0.2-1.3); CARBON DIOXIDE 20.1 mmol/L (21.0-32.0); PROTEIN - SERUM 3.3 g/dL (6.4-8.2)
[2018-11-04 08:00] VITALS: BP 94/48
--- NOTE | 2018-11-04 11:57 | NUR ---
ASSISTED PATIENT UP TO CHAIR. PATIETNT TOLERATED GOOD FOR APPROX 2 HOURS
[2018-11-04 12:50] VITALS: BP 92/46
[2018-11-04 15:45] VITALS: BP 115/36
--- NOTE | 2018-11-04 19:31 | NUR ---
PATIENT RESTING IN BED WITH GUEST AT BEDSIDE. ASSISTED THE PATIENT REPOSITIONING IN BED. PATIENT DENIES OTHER NEEDS AT THIS TIME. BED IN LOWEST POSITION AND CALL LIGHT WITHIN REACH. ENCOURAGED THE PATIENT TO CALL IF HE HAS NEEDS. WILL CONTINUE TO MONITOR.
--- NOTE | 2018-11-04 19:50 | NUR ---
ASSISTED PATIENT TO BSC AND BACK TO BED WITH SID RODRIGUEZ. PATIENT DENIES OTHER NEEDS AT THIS TIME. BED IN LOWEST POSITION AND CALL LIGHT WITHIN REACH. ENCOURAGED PATIENT TO CALL IF HE HAS NEEDS. WILL CONTINUE TO MONITOR.
[2018-11-04 20:00] VITALS: BP 104/54
[2018-11-05] VITALS: BP 116/40
[2018-11-05 06:06] LABS: BASOPHILS 0.3 % (0-2); EOSINOPHILS 0 % (0-7); HEMATOCRIT 27.7 % (42.0-54.0); HEMOGLOBIN 9.3 g/dL (13.5-17.5); IMMATURE GRANULOCYTES 0.3 % (0-5); LYMPHOCYTES 18.6 % (15-50); MCH 29.1 pg (26.0-34.0); MCHC 33.6 g/dL (31.0-37.0); MCV 86.6 fL (80.0-100.0); MONOCYTES 25.6 % (2-11); NEUTROPHILS 55.2 % (40-80); RDW 16.4 % (11.5-14.5)
[2018-11-05 06:11] LABS: PLATELET COUNT 54 10x3/uL (130-400)
[2018-11-05 06:32] LABS: ANION GAP 14.4 mmol/L (8-16); BILIRUBIN - TOTAL 9.24 mg/dL (0.2-1.3); CALCIUM 9.3 mg/dL (8.5-10.1); CARBON DIOXIDE 20.1 mmol/L (21.0-32.0); CREATININE - SERUM 1.9 mg/dL (0.6-1.3); POTASSIUM - SERUM 4.5 mmol/L (3.5-5.1); PROTEIN - SERUM 3.4 g/dL (6.4-8.2)
[2018-11-05 06:33] LABS: ALBUMIN 2.1 g/dL (3.4-5.0)
--- NOTE | 2018-11-05 07:00 | NUR ---
RECEIVED REPORT. ASSUMED CARE OF PATIENT. CALL LIGHT WITHIN REACH. PATIENT RESTING WITH EYES CLOSED, EASILY AROUSED. RESP EVEN AND UNLABORED. IV FLUIDS INFUSING ORDERED. NO DISTRESS. PATIENT AT BEDSIDE.
[2018-11-05 07:13] LABS: PLATELET ESTIMATE DECREASED; PLATELET MORPHOLOGY GIANT PLTS PRESENT
--- NOTE | 2018-11-05 07:54 | NUR ---
CALLED AND SPOKE TO [facility] IN PHARMACY AND REQUESTED ALBUMIN AND BUMEX BE SPREAD APART DUE TO PATIENT HAS GENERALIZED EDEMA AND MEDS ARE BEING GIVEN TOGETHER. PHARMACY TO CHANGE TIMES. THANKED WARREN.
--- NOTE | 2018-11-05 08:53 | NUR ---
BP 113/39, RECHECKED BP 114/46. BLOOD PRESSURE MEDICATIONS HELD AT THIS TIME. ALBUMIN INFUSING AT THIS TIME. CALL LIGHT WITHIN REACH.
[2018-11-05 09:20] VITALS: BP 135/39
--- NOTE | 2018-11-05 11:15 | NUR ---
COMPLETE LINEN CHANGE AND [id number] CARE PROVIDED. CALL LIGHT WITHIN REACH. NO DISTRESS.
--- NOTE | 2018-11-05 12:07 | NUR ---
FSBS 174. 4 UNITS HUMALOG ADMINISTERED PER SLIDING SCALE. NO DISTRESS.
--- NOTE | 2018-11-05 13:08 | NUR ---
PATIENTS DAUGHTER TO THE DESK REQUESTING THAT PATIENT OXYGEN BE TURNED UP. PATIENT IS ON ONE LITER. 02 SATURATION 99%. INFORMED PATIENT AND HIS DAUGHTER WE WILL NOT TURN UP THE OXYGEN BECAUSE HIS OXYGEN SATURATION IS 99% BUT THIS BUMPER MACHINE OPERATOR WILL SIT HIM UP. HE HAS GENERALIZED EDEMA MAKING IT DIFFICULT FOR HIM TO BREATH LYING SUPINE. PATIENT SITTING UP 40 DEGREES NOW. NO DISTRESS. CALL LIGHT WITHIN REACH.
[2018-11-05 13:31] VITALS: BP 116/44; BP 145/76
--- NOTE | 2018-11-05 15:19 | NUR ---
CALLED AND SPOKE TO . PATIENT ONLY HAS TYLENOL 650MG FOR PAIN AND HE IS HAVING A LOT OF BACK PAIN THAT THE TYLENOL IS NOT TAKING CARE OF. NEW ORDER RECEIVED FOR NORCO 5/325 PO Q4 PRN. THANKED
--- NOTE | 2018-11-05 15:50 | NUR ---
MEDICATED FOR PAIN AT THIS TIME. NO DISTRESS. CALL LIGHT WITHIN REACH.
--- NOTE | 2018-11-05 16:43 | NUR ---
ON UNIT AND GAVE ORDERS FOR PATIENT TO HAVE DIET TOLERATED, GET PATIENT WHATEVER HE WILL EAT. PATIENT DECIDED HE WOULD LIKE A HAMBURGER WITH SETUP, CHIPS, TEA, AND LEMON PIE. ORDER PLACED TO KITCHEN AT THIS TIME.
--- NOTE | 2018-11-05 17:04 | NUR ---
FSBS 174. 4 UNITS HUMALOG ADMINISTERED PER SLIDING SCALE. NO DISTRESS.
[2018-11-05 17:30] VITALS: BP 120/49
--- NOTE | 2018-11-05 19:15 | NUR ---
PATIENT RESTING IN BED WITH NO S/S OF DISTRESS. CLEANED PATIENT UP AFTER SMALL INCONTINENT BM. ALDA BECK AND Tay ASSISTED THE PATIENT REPOSITIONING PATIENT IN BED. PATIENT ALSO URINATED 150 ML IN URINAL. PATIENT REQUESTED A PAIN PILL WITHIN HIS NIGHT MEDS. PATIENT DENIES OTHER NEEDS AT THIS TIME. BED IN LOWEST POSITION AND CALL LIGHT WITHIN REACH. ENCOURAGED THE PATIENT TO CALL IF HE HAS NEEDS. WILL CONTINUE TO MONITOR.
[2018-11-05 20:00] VITALS: BP 101/44
[2018-11-06] VITALS: BP 107/55
[2018-11-06 04:00] VITALS: BP 115/48
[2018-11-06 06:22] LABS: HEMATOCRIT 25.5 % (42.0-54.0); HEMOGLOBIN 8.6 g/dL (13.5-17.5); MCH 29.5 pg (26.0-34.0); MCHC 33.7 g/dL (31.0-37.0); MCV 87.3 fL (80.0-100.0); RBC 2.92 10x6/uL (4.20-6.10); RDW 16.4 % (11.5-14.5)
[2018-11-06 06:32] LABS: ALBUMIN 2.1 g/dL (3.4-5.0); ANION GAP 13.1 mmol/L (8-16); BILIRUBIN - TOTAL 11.46 mg/dL (0.2-1.3); CALCIUM 9.2 mg/dL (8.5-10.1); CARBON DIOXIDE 20.1 mmol/L (21.0-32.0); CREATININE - SERUM 1.7 mg/dL (0.6-1.3); POTASSIUM - SERUM 4.2 mmol/L (3.5-5.1); PROTEIN - SERUM 3.3 g/dL (6.4-8.2)
[2018-11-06 06:35] LABS: PLATELET COUNT 42 10x3/uL (130-400)
--- NOTE | 2018-11-06 06:44 | NUR ---
NOTIFIED DR. WALTERS THAT THE PATIENT HAS A CRITICAL PLATELET COUNT OF 42 ON AM LABS
[2018-11-06 07:23] VITALS: BP 124/49
[2018-11-06 08:52] LABS: LYMPHOCYTES 33 % (15-50); MONOCYTES 13 % (2-11); NEUTROPHILS 53 % (40-80); PLATELET ESTIMATE DECREASED
[2018-11-06 08:55] LABS: ANISOCYTOSIS OCC
--- NOTE | 2018-11-06 12:26 | NUR ---
ALERT AND ORIENTED X4. SITTING UP IN BED. FAMILY ASSISTING WITH MEAL. DENIES ANY NEEDS AT THIS TIME. CONTINUE PLAN OF CARE AND SAFETY PRECAUTIONS.
--- NOTE | 2018-11-06 12:50 | NUR ---
Nutrition Calorie Count/Follow Up: kcalg protein Lunch 11/05/18:100 Dinner 11/05/18:51449 Breakfast 11/06/18:82621 24 Hour Total:736 kcal41 g protein Pt and family reported that his appetite is improving now that he is on solid food. Food preferences noted. Calorie Count on ADA diet to continue another 24 hours. BM: 11/06/18 Wt stable Labs reviewed - Glucose elevated Meds noted including Megace Rec continue ADA diet. Will continue calorie count 24 more hours per MD order. RD following.
--- NOTE | 2018-11-06 13:06 | NUR ---
PAGED DR. RESENDIZ PER DR. CASE REQUEST, DR. CASE STATES PT BILI HAS INCREASED TO 11 AND NEEDS TO BE FOLLOWED BY DR. RESENDIZ
[2018-11-06 14:43] LABS: BILIRUBIN - DIRECT 8.13 mg/dL (0.00-0.30); BILIRUBIN - INDIRECT 3.04 mg/dL (0.00-1.00); BILIRUBIN - TOTAL 11.17 mg/dL (0.2-1.3)
[2018-11-06 16:11] LABS: APPEARANCE CLEAR (CLEAR); COLOR YELLOW (YELLOW); SPECIFIC GRAVITY 1.015 (1.005-1.020)
[2018-11-06 16:12] LABS: BILIRUBIN NEGATIVE (NEGATIVE); GLUCOSE NEGATIVE (NEGATIVE); KETONE NEGATIVE (NEGATIVE); NITRITE NEGATIVE (NEGATIVE); PROTEIN NEGATIVE (NEGATIVE); UROBILINOGEN NORMAL (NORMAL)
[2018-11-06 17:02] VITALS: BP 116/43
--- NOTE | 2018-11-06 17:10 | NUR ---
ALERT AND ORIENTED X4. SITTING UP IN BED. UA COLLECTED AND TAKEN TO LAB. FAMILY AT BEDSIDE. ASSIST UP IN BED X 2 PERSON ASSIST. FSBS TREATED. DENIES ANY NEEDS AT THIS TIME. CONTINUE PLAN OF CARE AND SAFETY PRECAUTIONS. CONTROLLED AFIB 80 ON TELEMETRY.
--- NOTE | 2018-11-06 19:25 | NUR ---
PATIENT RESTING IN BED WITH AND DAUGHTER AT BEDSIDE. PATIENT DENIES NEEDS AT THIS TIME. ADMINISTERED MEDS PER ORDERS. ENCOURAGED THE PATIENT TO CALL IF HE HAS NEEDS. WILL CONTINUE TO MONITOR.
[2018-11-06 20:00] VITALS: BP 112/55
[2018-11-07] VITALS: BP 122/51
[2018-11-07 04:00] VITALS: BP 112/48
[2018-11-07 06:03] LABS: BASOPHILS 0.4 % (0-2); EOSINOPHILS 0.4 % (0-7); HEMATOCRIT 24.5 % (42.0-54.0); HEMOGLOBIN 8.4 g/dL (13.5-17.5); IMMATURE GRANULOCYTES 0.4 % (0-5); LYMPHOCYTES 16.6 % (15-50); MCH 29.8 pg (26.0-34.0); MCHC 34.3 g/dL (31.0-37.0); MCV 86.9 fL (80.0-100.0); MEAN PLATELET VOLUME 11.9 fL (7.4-10.4); MONOCYTES 19.9 % (2-11); NEUTROPHILS 62.3 % (40-80); RBC 2.82 10x6/uL (4.20-6.10); RDW 16.3 % (11.5-14.5)
[2018-11-07 06:43] LABS: ALBUMIN 2.4 g/dL (3.4-5.0); ANION GAP 17.4 mmol/L (8-16); BILIRUBIN - TOTAL 14.89 mg/dL (0.2-1.3); CALCIUM 9.7 mg/dL (8.5-10.1); CARBON DIOXIDE 18.1 mmol/L (21.0-32.0); CREATININE - SERUM 1.6 mg/dL (0.6-1.3); POTASSIUM - SERUM 4.5 mmol/L (3.5-5.1); PROTEIN - SERUM 3.4 g/dL (6.4-8.2)
[2018-11-07 06:47] LABS: WBC 2.7 10x3/uL (4.8-10.8)
[2018-11-07 06:48] LABS: PLATELET COUNT 35 10x3/uL (130-400)
--- NOTE | 2018-11-07 07:25 | NUR ---
PT ALERT AND ORIENTED, SITTING UP ON THE SIDE OF THE BED. AT BEDSIDE. SCDS ON. EGG CRATE MATTRESS. USES URINAL. GENERALIZED EDEMA PRESENT, BUE WEEPING PRESENT. SKIN JAUNDICE, SCLERA YELLOW. PT ON ELECTROLYTE PROTOCOL. STRICT I&0. PLATELET COUNT 35 THIS AM. PT ON 1L 02, NC. IV TO LEFT AC, NS INFUSING @ 50ML/HR. SITE PATENT WITHOUT REDNESS OR SWELLING. PT ACHS. ON TELEMETRY 82 CONTROLLED AFIB. OOB WITH MEALS. NO C/O PAIN. NO S/S OF ACUTE DISTRESS NOTED. PT DENIES ANYTHING FURTHER AT THIS TIME. CALL LIGHT IN REACH. WILL CONTINUE TO MONITOR.
[2018-11-07 08:05] LABS: INR 4.54 (0.85-1.17); PROTIME 42.2 SECONDS (11.6-15.0)
[2018-11-07 08:27] VITALS: BP 113/65
--- NOTE | 2018-11-07 13:40 | NUR ---
Nutrition Calorie Count: kcalg protein Lunch 11/06/18:08505 Dinner 11/06/18:33207 Breakfast 11/07/18:61156 24 hour Total:908 kcal44 g protein Pt continues not meeting est nutritional needs; however, his po intake continues to improve. Rec continue current diet. Calorie count completed. RD following.
[2018-11-07 16:12] VITALS: BP 119/47
--- NOTE | 2018-11-07 18:35 | NUR ---
I have reviewed this patient and I concur with the Shift Assessment completed by the Licensed Practical Nurse today this shift.
--- NOTE | 2018-11-07 19:25 | NUR ---
PT RESTING IN BED, EYES CLOSED. RESPIRATIONS EVEN AND UNLABORED. NO C/O PAIN. NO S/S OF ACUTE DISTRESS NOTED. CALL LIGHT IN REACH. AT BEDSIDE. DENIES ANYTHING FURTHER.
[2018-11-07 20:00] VITALS: BP 97/55
--- NOTE | 2018-11-07 21:22 | NUR ---
OT NOTE: PT COMPLETED SUPINE TO SIT WITH CGA/MIN A. PT COMPLETED SIT TO STANDS WITH CGA/MIN A. PT COMPLETED GROOMING TASKS AT EOB WITH SET UP. THANK YOU, ANA DOSHI
[2018-11-08] VITALS: BP 117/56
[2018-11-08 04:30] VITALS: BP 107/43
[2018-11-08 07:53] VITALS: BP 119/49
[2018-11-08 09:38] LABS: BASOPHILS 0.2 % (0-2); EOSINOPHILS 0 % (0-7); HEMATOCRIT 26.9 % (42.0-54.0); HEMOGLOBIN 9.1 g/dL (13.5-17.5); IMMATURE GRANULOCYTES 1.5 % (0-5); LYMPHOCYTES 14.3 % (15-50); MCH 29.2 pg (26.0-34.0); MCHC 33.8 g/dL (31.0-37.0); MCV 86.2 fL (80.0-100.0); MONOCYTES 17.4 % (2-11); NEUTROPHILS 66.6 % (40-80); RBC 3.12 10x6/uL (4.20-6.10); RDW 16.6 % (11.5-14.5)
[2018-11-08 09:39] LABS: PLATELET COUNT 51 10x3/uL (130-400); WBC 4.5 10x3/uL (4.8-10.8)
[2018-11-08 09:40] LABS: ALBUMIN 2.3 g/dL (3.4-5.0); BILIRUBIN - DIRECT 12.87 mg/dL (0.00-0.30); BILIRUBIN - INDIRECT 5.73 mg/dL (0.00-1.00); BILIRUBIN - TOTAL 18.6 mg/dL (0.2-1.3); PROTEIN - SERUM 3.3 g/dL (6.4-8.2)
--- NOTE | 2018-11-08 11:27 | NUR ---
left ac piv infiltrated. removed, tip intact.
[2018-11-08 11:58] VITALS: BP 123/48
--- NOTE | 2018-11-08 15:55 | MORECARE ---
CASE MANAGEMENT DISCHARGE SUMMARY PATIENT: JESSICA CHURCH UNIT: [id number] ADM DATE: 11/01/18 AGE: 73 : 44 SEX: M ROOM/BED: D.1211 AUTHOR: PAOLA PERALTA PHYSICIAN: REFERRING PHYSICIAN: HIPOLITO WALTERS MD DATE OF SERVICE: 11/08/18 Discharge Plan Patient Name: JESSICA CHURCH Facility: [facility]:[place] : 1945 Planned Disposition: Anticipated Discharge Date: Discharge Date: Expected LOS: Initial Reviewer: [email or web address] Initial Review Date: 11/03/2018 Generated: 11/08/18 4:55 pm Comments DCP- Discharge Planning Updated by [email or web address]: Radha Woods on 11/08/18 2:[address] Patient Name: JESSICA CHURCH Admission Status: ER Accout number: [id number] Admission Date: 11-01-2018 : 1945 Admission Diagnosis:NAUSEA WITH VOMITING, UNSPECIFIED Attending: HIPOLITO WALTERS Current LOS: 7 Anticipated DC Date: Planned Disposition: Primary Insurance: MEDICARE A & B Discharge Planning Comments: PATIENT AND FAMILY INTERESTED IN IN PATIENT REHAB IF HE NEEDS IT AT TIME OF DISCHARGE. CM TO FOLLOW AND ASSIST. Cloud Engagement Partner: Radha Woods DCP- Discharge Planning Updated by [email or web address]: Radha Woods on 11/03/18 9:[address] Patient Name: JESSICA CHURCH Admission Status: ER Accout number: [id number] Admission Date: 11-01-2018 : 1945 Admission Diagnosis: Attending: HIPOLITO WALTERS Current LOS: 2 Anticipated DC Date: Planned Disposition: Primary Insurance: MEDICARE A & B Discharge Planning Comments: CM MET WITH PATIENT AND HIS DAUGHTER CAMERON ABOUT DC PLANNING/NEEDS. CAMERON STATES DOESN'T KNOW IF ANY NEEDS AT THIS TIME. SHE SAID IF HE CONTINUES TO BE THIS WEAK HE MAY NEED IPR OR HH. CM WILL FOLLOW AND ASSIST NEEDED. CAMERON ALSO STATES HER FATHER HAS LEUKEMIA AND HAD CHEMO ABOUT A MONTH AGO. STATES HE LIVES AT HOME WITH HIS GRACIELA. Cloud Engagement Partner: Radha Woods DCPIA - Discharge Planning Initial Assessment Updated by [email or web address]: Radha Woods on 11/03/18 10:10 am * PCP [facility] * Pharmacy [facility] * Preadmission Environment Home with Family * ADLs Independent * Equipment Cane CPAP Walker * Other Equipment CHAIR LIFT. * List name and contact numbers for known caregivers / representatives who currently or will assist patient after discharge: KALIE OWENS, * Community resources currently utilized None * Has this patient been hospitalized within the prior 30 days at any hospital? No Coverage Notice Reviewer: [id number] - Radha Woods Notice Issued Date-Time: 11/03/2018 14:17 Notice Type: IM Discharge Notice Notice Delivered To: Patient Relationship to Patient: Productivity Engineer Name: Delivery Method: HAND - Hand Delivered Ilda Days: Prior Verbal Notification: Recipient Understood Notice: Yes Recipient Signature: Yes Med Rec Note Co-signed by Attending: Coverage Notice Comment: Last DP export: 11/03/18 9:18 a Patient Name: JESSICA CHURCH Page [phone] at 1555 All edits/amendments must be made on the electronic document DICTATION DATE: 11/08/18 1557 APPLICATION SUPPORT CONSULTANT: NORA 11/08/18 1552 RPT#: [id number] DC DATE: STATUS: ADM IN [facility] [address] [place] [address] END OF REPORT
--- NOTE | 2018-11-08 15:58 | NUR ---
I have reviewed this patient and I concur with the Shift Assessment completed by the Licensed Practical Nurse today this shift.
[2018-11-08 16:42] VITALS: BP 120/64
--- NOTE | 2018-11-08 18:05 | NUR ---
PATIENT RESTING COMFORTABLY ON RIGHT SIDE. NO SIGNS OF DISTRESS. ALL NEEDS MET AT THIS TIME.
[2018-11-09 06:54] LABS: BASOPHILS 0.2 % (0-2); EOSINOPHILS 0 % (0-7); HEMATOCRIT 25.9 % (42.0-54.0); HEMOGLOBIN 8.9 g/dL (13.5-17.5); IMMATURE GRANULOCYTES 0.9 % (0-5); LYMPHOCYTES 14.3 % (15-50); MCH 29.5 pg (26.0-34.0); MCHC 34.4 g/dL (31.0-37.0); MCV 85.8 fL (80.0-100.0); NEUTROPHILS 65.6 % (40-80); RBC 3.02 10x6/uL (4.20-6.10); RDW 16.7 % (11.5-14.5); WBC 4.4 10x3/uL (4.8-10.8)
[2018-11-09 07:06] LABS: PLATELET COUNT 41 10x3/uL (130-400)
[2018-11-09 07:17] LABS: ALBUMIN 2.1 g/dL (3.4-5.0); ANION GAP 19.6 mmol/L (8-16); BILIRUBIN - TOTAL 19.55 mg/dL (0.2-1.3); CALCIUM 10.2 mg/dL (8.5-10.1); CARBON DIOXIDE 16.3 mmol/L (21.0-32.0); CREATININE - SERUM 1.7 mg/dL (0.6-1.3); POTASSIUM - SERUM 4.9 mmol/L (3.5-5.1); PROTEIN - SERUM 2.9 g/dL (6.4-8.2)
[2018-11-09 07:21] LABS: INR 4.94 (0.85-1.17); PROTIME 45.1 SECONDS (11.6-15.0)
--- NOTE | 2018-11-09 07:26 | NUR ---
i agree with agent based modeler assessment.
[2018-11-09 08:03] VITALS: BP 144/73
--- NOTE | 2018-11-09 09:50 | NUR ---
Nutrition Follow Up: Chart reviewed Diet: ADA PO Intake: 46% meal avg BM: 11/06/18 Labs reviewed Meds noted including Megace, Lactulose, Lasix Rec consider changing diet to regular to encourage po intake. Rec continue appetite stimulant. RD following.
--- NOTE | 2018-11-09 10:18 | NUR ---
ATTEMPTED TO HELP PATIENT UP TO CHAIR TO CHANGE BED. TOO WEAK TO GET UP WITH WALKER. GOT VERY DIZZY WHEN STANDING. LAID BACK DOWN AND CHANGED BEDDING BY ROLLING PATIENT. STILL HAVING A LOT OF PAIN. ASKING FOR SOMETHING STRONGER. C/O PATIENT UNABLE TO SLEEP X 2 NIGHTS. I RECOMMEND A BED WITH A TRAPEZE BAR SO PATIENT CAN PULL HIMSELF UP TO CHANGE POSITIONS FOR BETTER ABILITY TO BREATHE IF PHYSICIAN IN AGREEMENT.
--- NOTE | 2018-11-09 10:21 | NUR ---
LAB UNABLE TO DRAW BLOOD THIS MORNING. REQUEST PICC LINE IF INDICATED. ANAYELI, VASCULAR ACCESS NURSE, PLACE PIV YESTERDAY.
[2018-11-09 10:29] LABS: PLATELET ESTIMATE DECREASED
[2018-11-09 10:30] LABS: ANISOCYTOSIS OCC; CRENATED CELLS 1+; POIKILOCYTOSIS OCC
[2018-11-09 12:26] VITALS: BP 105/53
--- NOTE | 2018-11-09 13:26 | NUR ---
I have reviewed this patient and I concur with the Shift Assessment completed by the Licensed Practical Nurse today this shift.
[2018-11-09 15:12] LABS: MITOCHONDRIAL ANTIBODY <20.0 Units (0.0-20.0); SMOOTH MUSCLE ABS (ACTIN) 2 Units (0-19)
--- NOTE | 2018-11-09 16:28 | NUR ---
CRITICAL LAB RECEIVED. RISSA Mendoza. CALLED [employer]. SPOKE TO CHANTELL WITH ANSWERING SERVICE. SHE SAID NANCY WOULD BE RETURNING MY CALL.
--- NOTE | 2018-11-09 16:37 | NUR ---
DR. CASE RETURNED CALL. I REPORTED CRITICAL AMONIA OF 95 AND TOLD HER THAT PATIENT NOW HAS PICC LINE. ASKED ABOUT TRANSFERRING PATIENT TO ICU DR. PEDRAZA AND HIS HAND PATCHER DISCUSSED. TOLD DR. CASE THAT DR. PEDRAZA'S HAND PATCHER TALKED TO FAMILY AND THAT THEY ARE IN FAVOR OF TRANSFER. DR. CASE IS CONCEREND ABOUT TRANSFER ONLY IN THAT PATIENT HAS FAMILY WITH HIM HELPING 17/01. FAMILY WOULD NOT BE ABLE TO STAY IN ICU. DR. CASE WOULD LIKE TO WAIT 12 HOURS TO SEE HOW HE DOES TONIGHT AND RECHECK HIS AMONIA LEVEL IN THE AM.
--- NOTE | 2018-11-09 18:52 | NUR ---
OT NOTE: PT COMPLETED BED MOB TASKS WITH MIN A. THANK YOU, ANA DOSHI
[2018-11-09 21:00] VITALS: BP 110/44
[2018-11-10] VITALS (14 sets, daily range): BP systolic 110–150; BP diastolic 50–73
--- NOTE | 2018-11-10 | NUR ---
1930 REPORT RECIEVED, SHIFT ASSESSMENT COMPLETE, PLEASE SEE FLOW SHEETS FOR DETAILS. AT BEDSIDE, QUESTIONS ANSWERED. INCONT. OF B&B CLEANED UP. DENIES ANY PAIN/NEEDS. BED LOW AND LOCKED, CALL LIGHT IN REACH. WILL CONTINUE PLAN OF CARE.
--- NOTE | 2018-11-10 | NUR ---
2350 UNIT 1 OF 4 OF FFP STARTED
--- NOTE | 2018-11-10 00:37 | NUR ---
0030 UNIT 1 DONE, UNIT 2 STARTED OF FFP
--- NOTE | 2018-11-10 05:08 | NUR ---
PT STATING HE FEELS LIKE HE IS DROWNING. PAGED CHEN CRAWFORD. ORDERS RECIEVED.
--- NOTE | 2018-11-10 07:00 | NUR ---
RESTING QUIETLY IN BED, FAMILY AT BEDSIDE, LETHARGIC, O2 @ 2 LPM NC, NO S/S PAIN, QUITE JAUNDICED, RESP SHALLOW, PHYSICIAN NOTIFIED.
[2018-11-10 08:17] LABS: ALBUMIN 2.4 g/dL (3.4-5.0); ANION GAP 19.8 mmol/L (8-16); BILIRUBIN - TOTAL 20.67 mg/dL (0.2-1.3); CALCIUM 11.7 mg/dL (8.5-10.1); CARBON DIOXIDE 17.9 mmol/L (21.0-32.0); CREATININE - SERUM 1.6 mg/dL (0.6-1.3); POTASSIUM - SERUM 4.7 mmol/L (3.5-5.1); PROTEIN - SERUM 3.7 g/dL (6.4-8.2)
[2018-11-10 08:24] LABS: INR 3.1 (0.85-1.17); PROTIME 31.2 SECONDS (11.6-15.0)
[2018-11-10 08:29] LABS: HEMATOCRIT 22.6 % (42.0-54.0); HEMOGLOBIN 7.8 g/dL (13.5-17.5); MCH 29.4 pg (26.0-34.0); MCHC 34.5 g/dL (31.0-37.0); MCV 85.3 fL (80.0-100.0); RBC 2.65 10x6/uL (4.20-6.10); WBC 4.3 10x3/uL (4.8-10.8)
[2018-11-10 08:30] LABS: PLATELET COUNT 45 10x3/uL (130-400)
[2018-11-10 09:39] LABS: CRENATED CELLS 1+; ELLIPTOCYTES OCC; LYMPHOCYTES 10 % (15-50); MONOCYTES 21 % (2-11); NEUTROPHILS 63 % (40-80); PLATELET ESTIMATE DECREASED; POIKILOCYTOSIS OCC
[2018-11-10 09:40] LABS: ANISOCYTOSIS OCC
--- NOTE | 2018-11-10 09:40 | MORECARE ---
CASE MANAGEMENT DISCHARGE SUMMARY PATIENT: JESSICA CHURCH UNIT: [id number] ADM DATE: 11/01/18 AGE: 73 : 44 SEX: M ROOM/BED: D.1211 AUTHOR: PAOLA PERALTA PHYSICIAN: REFERRING PHYSICIAN: HIPOLITO WALTERS MD DATE OF SERVICE: 11/10/18 Discharge Plan Patient Name: JESSICA CHURCH Facility: [facility]:[place] : 1945 Planned Disposition: Anticipated Discharge Date: Discharge Date: Expected LOS: Initial Reviewer: [email or web address] Initial Review Date: 11/03/2018 Generated: 11/10/18 10:40 am Comments DCP- Discharge Planning Updated by [email or web address]: Radha Woods on 11/10/18 8:[address] Patient Name: JESSICA CHURCH Admission Status: ER Accout number: [id number] Admission Date: 11-01-2018 : 1945 Admission Diagnosis:NAUSEA WITH VOMITING, UNSPECIFIED Attending: HIPOLITO WALTERS Current LOS: 9 Anticipated DC Date: Planned Disposition: Primary Insurance: MEDICARE A & B Discharge Planning Comments: PATIENT HEALTH IS DECLINING, TRANSFERED TO ICU. NURSE STATES YESTERDAY FAMILY DID NOT WANT TO TALK ABOUT DNR. PATIENT MAY NEED HOSPICE, I AM NOT SURE OF THE PATIENT'S PROGNOSIS. CM TO FOLLOW AND ASSIST. Government Property Inspector: Radha Woods DCP- Discharge Planning Updated by [id number]: Radha Woods on 11/08/18 2:[address] Patient Name: JESSICA CHURCH Admission Status: ER Accout number: [id number] Admission Date: 11-01-2018 : 1945 Admission Diagnosis:NAUSEA WITH VOMITING, UNSPECIFIED Attending: HIPOLITO WALTERS Current LOS: 7 Anticipated DC Date: Planned Disposition: Primary Insurance: MEDICARE A & B Discharge Planning Comments: PATIENT AND FAMILY INTERESTED IN IN PATIENT REHAB IF HE NEEDS IT AT TIME OF DISCHARGE. CM TO FOLLOW AND ASSIST. Government Property Inspector: Radha Woods DCP- Discharge Planning Updated by [email or web address]: Radha Woods on 11/03/18 9:[address] Patient Name: JESSICA CHURCH Admission Status: ER Accout number: [id number] Admission Date: 11-01-2018 : 1945 Admission Diagnosis: Attending: HIPOLITO WALTERS Current LOS: 2 Anticipated DC Date: Planned Disposition: Primary Insurance: MEDICARE A & B Discharge Planning Comments: CM MET WITH PATIENT AND HIS DAUGHTER CAMERON ABOUT DC PLANNING/NEEDS. CAMERON STATES DOESN'T KNOW IF ANY NEEDS AT THIS TIME. SHE SAID IF HE CONTINUES TO BE THIS WEAK HE MAY NEED IPR OR HH. CM WILL FOLLOW AND ASSIST NEEDED. CAMERON ALSO STATES HER FATHER HAS LEUKEMIA AND HAD CHEMO ABOUT A MONTH AGO. STATES HE LIVES AT HOME WITH HIS GRACIELA. Government Property Inspector: Radha Woods DCPIA - Discharge Planning Initial Assessment Updated by [email or web address]: Radha Woods on 11/03/18 10:10 am * PCP [facility] * Pharmacy [facility] * Preadmission Environment Home with Family * ADLs Independent * Equipment Cane CPAP Walker * Other Equipment CHAIR LIFT. * List name and contact numbers for known caregivers / representatives who currently or will assist patient after discharge: GRACIELA, , * Community resources currently utilized None * Has this patient been hospitalized within the prior 30 days at any hospital? No Coverage Notice Reviewer: [id number] - Radha Woods Notice Issued Date-Time: 11/03/2018 14:17 Notice Type: IM Discharge Notice Notice Delivered To: Patient Relationship to Patient: Maintenance Planning Clerk Name: Delivery Method: HAND - Hand Delivered Ilda Days: Prior Verbal Notification: Recipient Understood Notice: Yes Recipient Signature: Yes Med Rec Note Co-signed by Attending: Coverage Notice Comment: Last DP export: 11/08/18 2:55 p Patient Name: JESSICA CHURCH Page [phone] at 0940 All edits/amendments must be made on the electronic document DICTATION DATE: 11/10/18938 SHOE COVERER: NORA 11/10/18938 RPT#: [id number] DC DATE: STATUS: ADM IN [facility] [address] [place] [address] END OF REPORT
--- NOTE | 2018-11-10 10:23 | NUR ---
REPORT CALLED TO ICU
--- NOTE | 2018-11-10 11:30 | NUR ---
PATIENT TRANSFERRED TO ICU FOR FURTHER TREATMENT.
--- NOTE | 2018-11-10 11:45 | NUR ---
PT TO ICU. POSITIONED TO RIGHT SIDE. PT CONFUSED. THOUGHT THE YEAR WAS 1998. PT IS JAUNDICE. DAUGHTER AT BEDSIDE. PT ON O2 AT 2L. WILL CONTINUE TO MONITOR.
--- NOTE | 2018-11-10 13:15 | NUR ---
PT UNCOMFORTABLE. REPOSITIONED. VSS.
--- NOTE | 2018-11-10 14:48 | NUR ---
FAMILY UPSET D/T PT NOT HAVING ANY PAIN MEDICATION. STATES THAT THEY FEEL LIKE THE DOCTORS KEEP PASSING THAT RESPONSIBILITY AND THAT THE PT IS IN TOO MUCH PAIN AT THIS POINT AND THEY DON'T CARE BUT TO HELP HIM GET COMFORTABLE. SPOKE WITH DR CASE WHO SAID THAT COULD POSSIBLY GIVE 0.5MG OF DILAUDID BUT THAT SHE WANTED ME TO WAIT UNTIL I SPOKE WITH GI. CALLED GI OFFICE TO TRY TO SPEAK WITH EITHER DR PEDRAZA OR YVETTE MONTERO, (SINCE SHE ROUNDED ON PT AROUND 1215). I SPOKE WITH TIERRA, DR PEDRAZA'S NURSE WHO WOULDN'T GIVE ME KYLAH'S NUMBER BUT THAT SHE WOULD CALL HER AND LET HER KNOW THAT I HAD A QUESTION ABOUT THIS PT AND THAT SHE WOULD HAVE KYLAH CALL ME. RECEIVED CALL BACK FROM TIERRA STATING THAT KYLAH HAD ALREADY DISCUSSED THE PT WITH DR PEDRAZA AND THAT DR PEDRAZA WOULD ROUND ON THE PT WHEN HE WAS DONE WITH PROCEDURES.
--- NOTE | 2018-11-10 15:50 | NUR ---
DR FOX ROUNDED ON PT. OKAYED TO GIVE DILAUDID. PT CLEANED UP AND REPOSITIONED. WEEPING EDEMA.
[2018-11-10 16:09] LABS: EBV DNA QUANT PCR LOG10 5.119 (())
--- NOTE | 2018-11-10 17:22 | NUR ---
SPOKE WITH DR SANFORD THEN DR FOX REGARDING PT'S ECHO. UPDATED PT'S FAMILY. PT IS RESTING QUIETLY WITH NO DISTRESS NOTED. VSS. WILL CONTINUE TO MONITOR.
[2018-11-10 17:40] LABS: TROPONIN-I 1.25 ng/mL (0.000-0.060)
--- NOTE | 2018-11-10 17:55 | NUR ---
DR ROME PAGED AT THIS TIME FOR CRITICAL TROPONIN OF 1.250.
--- NOTE | 2018-11-10 19:15 | NUR ---
SHIFT ASSESSMENT COMPLETED SEE FLOWSHEET - PATIENT TEMPERATURE 96.5 AXILLARY, INCREASED ROOM TEMPERATURE AND COVERED WITH WARM BLANKET X2. BED SATURATED WITH URINE AT THIS TIME. BED BATH AND LINEN CHANGE PERFORMED - STAGE 2 PRESSURE ULCER SEEN AT THIS TIME ON BUTTOCKS COVERED WITH MEPILEX. VSS
--- NOTE | 2018-11-10 20:15 | NUR ---
FAMILY AT BEDSIDE, ALL QUESTIONS ANSWERED UPDATE RECEIVED
--- NOTE | 2018-11-10 20:39 | NUR ---
PAGED DR ROME AT THIS TIME
--- NOTE | 2018-11-10 20:56 | NUR ---
DR. BOURGEOIS RETURNED CALL AT THIS TIME - ACKNOWLEDGED CRITICAL TROPONIN AND REQUESTED REPEAT DRAWS TO BE DC'D NO FURTHER ORDERS RECEIVED AT THIS TIME
--- NOTE | 2018-11-10 20:58 | NUR ---
CARE TRANSFERRED TO CARYN FOLEY RN AT THIS TIME
--- NOTE | 2018-11-10 21:00 | NUR ---
REPORT RECEIVED AGREE WITH ASSESSMENT
--- NOTE | 2018-11-10 21:30 | NUR ---
FAMILY AT BEDSIDE. WORRIED ABOUT LEAVING HIM. ALSO ABOUT PAIN MED PT SLEEPING PRETTY WELL DOES WAKE UP I ASKED HOW HE WAS HE STATED OK THEN RIGHT BACK TO SLEEP. INFORMED FAMILY WILL STAY ON TOP OF PAIN BUT ALSO DID NOT WANT TO OVERMEDICATE AND CAUSE OTHER ISSUES
--- NOTE | 2018-11-10 23:00 | NUR ---
ASSESSMENT COMPLETE CPOC NO CHANGES NO S/S OF DISTRESS
[2018-11-11] VITALS (29 sets, daily range): BP systolic 85–148; BP diastolic 35–69
--- NOTE | 2018-11-11 02:13 | NUR ---
PT RESTLESS ASKED IF HE WAS HURTING PT STATES YES MEDICATED PER PRN ORDER ALSO REPOSITIONED FOR COMFORT WILL CONTINUE TO MONITOR
--- NOTE | 2018-11-11 03:00 | NUR ---
REASSESSMENT MADE PAIN MED EFFECTIVE. WEEPING FROM EXTREMIITIES FREQUENTLY CHANGING PADS TO KEEP PT DRY
--- NOTE | 2018-11-11 04:00 | NUR ---
COMPLETE LINEN CHANGE PTS SKIN WET FROM WEEPING REPOSITIONED FOR COMFORT CPOC
[2018-11-11 06:12] LABS: BASOPHILS 0.3 % (0-2); EOSINOPHILS 0.1 % (0-7); HEMATOCRIT 26.5 % (42.0-54.0); HEMOGLOBIN 9.1 g/dL (13.5-17.5); IMMATURE GRANULOCYTES 0.4 % (0-5); LYMPHOCYTES 8.2 % (15-50); MCH 29.4 pg (26.0-34.0); MCHC 34.3 g/dL (31.0-37.0); MCV 85.8 fL (80.0-100.0); MONOCYTES 21.1 % (2-11); NEUTROPHILS 69.9 % (40-80); RBC 3.09 10x6/uL (4.20-6.10); RDW 17.1 % (11.5-14.5)
[2018-11-11 06:20] LABS: WBC 7.2 10x3/uL (4.8-10.8)
[2018-11-11 06:21] LABS: PLATELET COUNT 47 10x3/uL (130-400)
[2018-11-11 06:35] LABS: INR 3.95 (0.85-1.17); PROTIME 37.8 SECONDS (11.6-15.0)
[2018-11-11 06:49] LABS: PLATELET ESTIMATE DECREASED
[2018-11-11 07:18] LABS: ALBUMIN 2.2 g/dL (3.4-5.0); ANION GAP 19.6 mmol/L (8-16); BILIRUBIN - TOTAL 23.5 mg/dL (0.2-1.3); CALCIUM 11.5 mg/dL (8.5-10.1); CARBON DIOXIDE 18.5 mmol/L (21.0-32.0); CREATININE - SERUM 1.7 mg/dL (0.6-1.3); POTASSIUM - SERUM 5.1 mmol/L (3.5-5.1); PROTEIN - SERUM 3.4 g/dL (6.4-8.2)
--- NOTE | 2018-11-11 08:06 | NUR ---
AWAKES TO VERBAL STIMULI SKIN WARM AND DRY. PULLING ON GOWN AND LEADS WHEN AWAKES. ADMITS TO PAIN WHEN ASKED DOES NOT KNOW WHERE HE IS HURTING. RIGHT UPPER ARM PICC LINE DRESSING DRY AND INTACT. NO DISTRESS
[2018-11-11 08:11] LABS: HSV 1 DNA (PCR) Negative (Negative); HSV 2 DNA (PCR) Negative (Negative)
--- NOTE | 2018-11-11 09:00 | NUR ---
PO MEDS CRUSHED AND PLACED IN APPLE SAUCE. WITH ENCOURAGEMENT PATIENT DID FINALLY SWALLOW APPLE SAUCE. UNABLE TO SIP WATER FROM STRAW FOR TAKE A DRINK OF WATER FROM A CUP. AT BEDSIDE. DISCUSS A FEEDING TUBE TO GET LACTOSE DONE. IS AGREEABLE TO FEEDING TUBE.
--- NOTE | 2018-11-11 10:30 | NUR ---
DR. PEDRAZA HERE. BLOOD PRESSURE DROPPED AFTER PAIN MEDS. 500CC FLUID BOLUS ORDERED. MAY REPEAT BOLUS IF NEEDED. LEVOPHED GTT ORDERED IF NEEDED. 500CC NS BOLUS STARTED
--- NOTE | 2018-11-11 11:30 | NUR ---
500CC NS BOLUS INFUSING (2ND BOLUS ) LEVOPHED GTT STARTED.
--- NOTE | 2018-11-11 12:24 | NUR ---
ng inserted right nares without difficulty. patient tolerated well air bolus audible in abd. returned dark redish brown thick liquid small amount.
--- NOTE | 2018-11-11 13:56 | NUR ---
DR. SOLORZANO HERE TALKED WITH FAMILY
--- NOTE | 2018-11-11 14:57 | NUR ---
Nutrition Consult recieved for tube feeding recommendations: Recommend Suplena @ 10mL/hour and advance as tolerated to goal rate of 50mL/hour for now. This regimen provides 2154 calories, 54gm protein and 886mL water Recommend proteinex 40mL daily providing an additional 20gm protein daily. RD following
--- NOTE | 2018-11-11 19:15 | NUR ---
REPORT RECEIVED INITIAL SHIFT ASSESSMENT COMPLETE. PT RESTING WITH EYES CLOSED OPENS EYES TO VERBAL STIMULI FOLLOWS. LETHARGIC BUT DOES MAKE EYE CONTACT AND FOLLOWS COMMANDS WEAKLY. ORIENTED TO PERSON AND PLACE DIFFICULT TO UNDERSTAND SPEECH WEAK GARBLED BUT STATES HOSPITAL AND NAME BUT FALLS BACK TO SLEEP AND DOES NOT ANSWER FURTHER QUESTIONS. SKIN JAUNDICED AND WEEPING GENERALZED EDEMA. IT NETWORK ADMINISTRATOR READING SR WITHOUT ECTOPY ALARMS ON AND AUDIBLE. ABD FIRM DISTENDED TENDER TO TOUCH BS PRESENT. RIGHT UPPER ARM PICC LINE WITH NS INFUSING AT KVO. NGT PRESENT WRIST RESTRAINTS IN PLACE PT ATTEMPTS TO PULL NGT OUT. CPOC WILL CONTINUE TO MONITOR
--- NOTE | 2018-11-11 20:00 | NUR ---
FAMILY AND DAUGHTER AT BEDSIDE PT RESTING QUIETLY WITH EYES CLOSED VSS AT THIS TIME
--- NOTE | 2018-11-11 21:30 | NUR ---
PTS STATING PT NEEDS PAIN MED. SPOKE TO PATIENT HE ANSWERS YES TO QUESTION OF PAIN. MEDICATED WITH PRN DILAUDID REPOSITIONED FOR COMFORT
--- NOTE | 2018-11-11 22:00 | NUR ---
PT RESTING QUIETLY VSS NO DISTRESS DENIES PAIN CPOC
--- NOTE | 2018-11-11 23:00 | NUR ---
RECEIVED PT TO ICU ROOM 2314. PT ALERT ORIENTED DENIES PAIN OR SOB BUT RESPIRATIONS ARE INCREASED ON ROOM AIR PLACED ON BIPAP BY RT CASA. PT FOLLOWS COMMANDS. RELATIVELY CLEAR AT THIS TIME O2 SAT 96%. RIGHT HAND 20 GUAGE IV PATENT. BED IN LOW POSITION SIDE RAILS UP TIMES 3 FOR BED MOBILITY AND SAFETY, CALL LIGHT IN REACH.
--- NOTE | 2018-11-11 23:00 | NUR ---
REASSESSMENT COMPLETE, SEE ASSESSMENT FLOWSHEET.
--- NOTE | 2018-11-11 23:15 | NUR ---
O2 DECREASED NOW AT 80% BIPAP
[2018-11-12] VITALS (64 sets, daily range): BP systolic 61–130; BP diastolic 35–68
--- NOTE | 2018-11-12 01:00 | NUR ---
REPOSITIONED DRESSING TO BUTTOCS INTACT. CPOC ORAL CARE DONE.
--- NOTE | 2018-11-12 03:00 | NUR ---
REASSESSMENT MADE NO CHANGES PT DENIES PAIN WEEPING CONTINUES CHANGING PADS AND LINENS NEEDED
[2018-11-12 05:49] LABS: INR 4.51 (0.85-1.17)
[2018-11-12 05:53] LABS: ALBUMIN 2.3 g/dL (3.4-5.0); ANION GAP 18.8 mmol/L (8-16); BASOPHILS 0.1 % (0-2); BILIRUBIN - TOTAL 24.73 mg/dL (0.2-1.3); CALCIUM 10.9 mg/dL (8.5-10.1); CARBON DIOXIDE 20.3 mmol/L (21.0-32.0); CREATININE - SERUM 2.1 mg/dL (0.6-1.3); EOSINOPHILS 0.1 % (0-7); HEMATOCRIT 24.6 % (42.0-54.0); HEMOGLOBIN 8.3 g/dL (13.5-17.5); IMMATURE GRANULOCYTES 0.5 % (0-5); LYMPHOCYTES 8.3 % (15-50); MCH 29.2 pg (26.0-34.0); MCHC 33.7 g/dL (31.0-37.0); MCV 86.6 fL (80.0-100.0); MONOCYTES 14.3 % (2-11); NEUTROPHILS 76.7 % (40-80); POTASSIUM - SERUM 5.1 mmol/L (3.5-5.1); PROTEIN - SERUM 3.1 g/dL (6.4-8.2); RBC 2.84 10x6/uL (4.20-6.10); RDW 17.7 % (11.5-14.5)
[2018-11-12 05:54] LABS: PLATELET COUNT 42 10x3/uL (130-400); WBC 9.9 10x3/uL (4.8-10.8)
--- NOTE | 2018-11-12 06:30 | NUR ---
COMPLETE BED BATH LINEN CHANGE G BATH. CLEAN AND DRY SHEETS
--- NOTE | 2018-11-12 07:55 | NUR ---
LETHERGIC. SKIN WET AND WARM. RIGHT UPPER ARM PICC DRESSING DRY AND INTACT. NS AT KVO INFUSING. SARGENT PATENT DARK TERRA. NG RIGHT NARES INFUSING WITH SUPLENA AT 10 ML HOUR. HEAD OF BED ELEVATED AT 30 DEGREES. RESTLESS ACTING, MOVING ARMS AND UPPER BODY. LIKE HE CAN GET COMFORTABLE.
--- NOTE | 2018-11-12 09:15 | NUR ---
NG CHECK FOR PLACEMENT PER AIR BOLUS. 35 ML RESIDUAL NOTED. MEDS GIVEN PER NG. PATIENT TOLERATED FAIR. STILL RESTLESS AT TIMES.
--- NOTE | 2018-11-12 10:07 | NUR ---
HERE UPDATE GIVEN. PATEINT RESTING COMFORTABLY AFTER DILAUDID GIVEN. LESS RESTLESS ANDNOT MOANING. TEARFUL UNDERSTANDS SHE NEEDS TO MAKE SOME DECISIONS
--- NOTE | 2018-11-12 10:30 | NUR ---
BLOOD PRESSURE DOWN, LEVOHED STARTED AT 2 MCG/MIN. PATIENT RESTING FAIRLY COMFORTABLE NO RESP DISTRESS. AT BEDSIDE WITH FAMILY
--- NOTE | 2018-11-12 12:00 | NUR ---
LEVOPHED INCREASED TO 4 MCG FOR BP LESS THAN 90 SYS.
--- NOTE | 2018-11-12 12:30 | NUR ---
FAMILY AND AT BEDSIDE. TALKED WITH DR. WALTERS. INSTRUCTED TO GO AHEAD AND GIVE PAIN MEDS TO KEEP PATIENT COMFORTALBE.
--- NOTE | 2018-11-12 15:30 | NUR ---
FIRST STEP AIR MATTRESS APPLIED TO BED FOR PRESSURE RELIEF TO COCCYX. PATIENT TOLERATED FAIR. MEDIPLEX DRESSING ON COCCYX DRY AND INTACT. HEEL ELEVATED OFF BED WITH PILLOW. WARM BLANKETS APPLIED. PATIENT WILL CONTINOUSLY PULL ON EKG AND BLANKETS. HEAD OF BED ELEVATED 30 DEGREES. NG TUBE FEEDING SUPLENA INFUSING AT 10 ML HOUR. 30 ML RESIDUAL. CHECKED FOR PLACEMENT WITH AIR BOLUS. DRESSING RIGHT UPPER ARM WITHOUT REDNESS OR DRAINAGE. LEVOPHED GTT AT 4 MCG. NS AT KVO. SARGENT WITH MINIMAL DRAINAGE. DR. WALTERS TALKED WITH FAMILY.
--- NOTE | 2018-11-12 18:18 | NUR ---
PATIENT RESTING COMFORTABLY. FAMILY AT BEDSIDE. NO DISTRESS RESP DEEP AND REGULAR. LEVOPHED AT 8 MCG/MIN.
--- NOTE | 2018-11-12 19:15 | NUR ---
REPORT RECEIVED INITIAL ASSESSMENT COMPLETE. PT LYING ON FIRST STEP OVERLAY MATTRESS EYES CLOSED. AT BEDSIDE SPEAKING WITH NURSE PT OPENS EYES TO VERBAL STIMULI LEHTARGIC DOES NOT VERBALIZE OR ANSWER QUESTIONS. PTS WILL CALL NURSE IF PT BECOMES RESTLESS OR WITH ANY SIGNS OF PAIN. BREATH SOUNDS COARSE SHALLOW O2 SAT 92% ROOM AIR SO O2 PLACED ON AT 2LPM, O2 SAT UP TO 97% AFTER O2. CM WITH ALARMS ON AND AUDIBLE. JAUNDICED. PICC LINE PATENT WITH NS KVO WITH LEVOPHED GTT INCREASED FROM 8MCG UP TO 9MCG. SARGENT PATENT WITH MINIMAL DARK URINE NOTED TO TUBING. BED LOW POSITION SIDE RAILS UP TIMES 3. ABD DISTENDED TENDER. MEPILEX DRESSING TO BUTTOCKS NO DRAINAGE NOTED TO DRESSING. DEPENDENT WEEPING EDEMA REQUIRING FREQUENT UNDERPAD CHANGES TO ATTEMPT TO KEEP PT DRY.
--- NOTE | 2018-11-12 19:45 | NUR ---
RESIDUAL CHECK 35 CC [place] DRAINAGE REPLACED BUT TUBE FEED OFF AT THIS TIME PT HOB LOWERED DUE TO HYPOTENSION AND ON LEVOPHED
--- NOTE | 2018-11-12 20:00 | NUR ---
SPEAKING WITH ABOUT PT SHE HAS QUESTIONS CONCERNING PROGNOSIS AND PTS SUFFERING. SPOKE AT LENGTH ABOUT WHAT SHE WANTED DONE IN CODE SITUATION SHE STATED SHE AND HER DAUGHTER HAD TALKED WITH PHYSICIANS AND JUST DID NOT WANT HIM TO SUFFER.
--- NOTE | 2018-11-12 21:15 | NUR ---
PTS REQUESTING PAIN MED PT RESTLESS AGITATED AND MOANING. PT DOES NOT VERBALIZE PAIN LEVEL HE IS RESTLESS AND GRIMACING IN PAIN MEDICATED WITH PRN PAIN MED WILL CONTINUE TO MONITOR
--- NOTE | 2018-11-12 23:00 | NUR ---
REASSESMENT MADE SEE FLOWSHEET
[2018-11-13] VITALS (23 sets, daily range): BP systolic 75–123; BP diastolic 37–90
--- NOTE | 2018-11-13 01:00 | NUR ---
HYPOTENSIVE CONTINUE TO TITRATE LEVOPHED O2 4 LPM NC WITH O2 SAT OF 94%,
[2018-11-13 02:45] LABS: HEMATOCRIT 28.7 % (42.0-54.0); HEMOGLOBIN 9.6 g/dL (13.5-17.5); MCH 29.6 pg (26.0-34.0); MCHC 33.4 g/dL (31.0-37.0); MCV 88.6 fL (80.0-100.0); PLATELET COUNT 79 10x3/uL (130-400); RBC 3.24 10x6/uL (4.20-6.10); RDW 19.1 % (11.5-14.5); WBC 34.5 10x3/uL (4.8-10.8)
[2018-11-13 02:53] LABS: PROTIME 46.3 SECONDS (11.6-15.0)
[2018-11-13 02:57] LABS: INR 5.11 (0.85-1.17)
--- NOTE | 2018-11-13 03:00 | NUR ---
REASSESSMENT COMPLETE PT RESP LABORED AND AIR HUNGRY O2 NC O2 SATS 94% BREATHS SOUNDS WET AND CHANGE FROM PREVIOUS ASSESSMENT ABG ORDERED AM LABS DRAWN EARLY LEVOPHED TITRATING UP NOT AT MAX BUT REQUIRING INCREASES OFTEN. AWAITING LAB RESULTS BEFORE CALLING DR WALTERS
[2018-11-13 03:06] LABS: EOSINOPHILS 1 % (0-7); LYMPHOCYTES 4 % (15-50); MONOCYTES 4 % (2-11); NEUTROPHILS 78 % (40-80)
[2018-11-13 03:07] LABS: BURR CELLS 3+; PLATELET ESTIMATE DECREASED
[2018-11-13 03:08] LABS: ALBUMIN 2.4 g/dL (3.4-5.0); ANION GAP 20.3 mmol/L (8-16); BILIRUBIN - TOTAL 28.63 mg/dL (0.2-1.3); CALCIUM 10.1 mg/dL (8.5-10.1); CARBON DIOXIDE 16.1 mmol/L (21.0-32.0); CREATININE - SERUM 2.8 mg/dL (0.6-1.3); POTASSIUM - SERUM 5.4 mmol/L (3.5-5.1); PROTEIN - SERUM 3.1 g/dL (6.4-8.2)
--- NOTE | 2018-11-13 03:29 | NUR ---
SPOKE WITH DR WALTERS BY PHONE UPDATE GIVEN INFORMED OF LABORED RESP WITH CRACKLES. ABG RESULT GIVEN AND CRITICAL LAB VALUES. NEW ORDERS NOTED
--- NOTE | 2018-11-13 04:00 | NUR ---
PT RESP NOT LABORED ATTEMPT TO SUCTION NO SECRETIONS LEVOPHED TITRATED UP
--- NOTE | 2018-11-13 05:00 | NUR ---
PT REPOSITIONED IN BED PT IS LARGE MAN 6 FOOT 4 REPOSITIONED FOR PRESSURE ORAL CARE DONE
--- NOTE | 2018-11-13 06:00 | NUR ---
SPEAKING WITH ON PHONE UPDATED ON PT. INFORMED PT WAS NOW REQUIRING MAXIMUM DOSE OF LEVOPHED AND STATUS WAS DECLINING SHE STATED SHE WOULD BE HERE SHORTLY.
--- NOTE | 2018-11-13 07:07 | NUR ---
WHILE AT BEDSIDE GIVING ONCOMING SHIFT NURSE REPORT PT HEART RATE DROPPING CHECK PULSE NO PULSE PEA CODE BLUE CALLED AND CPR INITIATED.
--- NOTE | 2018-11-13 07:12 | NUR ---
CALLED PTS SHE IS ENROUTE INFOMRED OF CODE SITUATION AND ASKING IF SHE WANTED RESUSCITATION EFFORTS TO CONTINUE WITH INTUBATION. SHE DOES NOT WANT PT TO SUFFER, SHE WANTED TO STOP CPR THIS WAS VERIFIED WITH Charline SHIRLEY RN AND DR POE ALSO SPOKE WITH PTS VIA PHONE..
--- NOTE | 2018-11-13 07:15 | NUR ---
CODE BLUE STOPPED PER FAMILY WISHES PT PRONOUNCED BY DR POE
--- NOTE | 2018-11-13 07:45 | NUR ---
PTS HERE TALKING WITH NURSE IN FAMILY ROOM, DAUGHTER ON WAY WELL FAMILY. WHILE THIS NURSE SPEAKING WITH FAMILY PT CHARGE NURSE DAY AND TELECOMMUNICATIONS FIELD TECHNICIAN GETTING PT CLEANED UP AND ROOM READY FOR FAMILY.
--- NOTE | 2018-11-13 08:00 | NUR ---
FAMILY AT BEDSIDE. HOME DECISIONS NOT MADE YET. LHARR RN TAKING OVER AND WILL COMPLETE WHEN FAMILY MAKES DECISIONS
--- NOTE | 2018-11-13 18:09 | MORECARE ---
CASE MANAGEMENT DISCHARGE SUMMARY PATIENT: JESSICA CHURCH UNIT: [id number] ADM DATE: 11/01/18 AGE: 73 : 43 SEX: M ROOM/BED: D.2310 AUTHOR: PAOLA PERALTA PHYSICIAN: REFERRING PHYSICIAN: HIPOLITO WALTERS MD DATE OF SERVICE: 11/13/18 Discharge Plan Patient Name: JESSICA CHURCH Facility: [facility]:[place] : 1945 Planned Disposition: Anticipated Discharge Date: Discharge Date: 11/13/2018 Expected LOS: Initial Reviewer: [email or web address] Initial Review Date: 11/03/2018 Generated: 11/13/18 7:09 pm DCP- Discharge Planning Updated by [email or web address]: Radha Woods on 11/10/18 8:[address] Patient Name: JESSICA CHURCH Admission Status: ER Accout number: [id number] Admission Date: 11-01-2018 : 1945 Admission Diagnosis:NAUSEA WITH VOMITING, UNSPECIFIED Attending: HIPOLITO WALTERS Current LOS: 9 Anticipated DC Date: Planned Disposition: Primary Insurance: MEDICARE A & B Discharge Planning Comments: PATIENT HEALTH IS DECLINING, TRANSFERED TO ICU. NURSE STATES YESTERDAY FAMILY DID NOT WANT TO TALK ABOUT DNR. PATIENT MAY NEED HOSPICE, I AM NOT SURE OF THE PATIENT'S PROGNOSIS. CM TO FOLLOW AND ASSIST. Correspondence Transcriber: Radha Woods DCP- Discharge Planning Updated by [id number]: Radha Woods on 11/08/18 2:[address] Patient Name: JESSICA CHURCH Admission Status: ER Accout number: [id number] Admission Date: 11-01-2018 : 1945 Admission Diagnosis:NAUSEA WITH VOMITING, UNSPECIFIED Attending: HIPOLITO WALTERS Current LOS: 7 Anticipated DC Date: Planned Disposition: Primary Insurance: MEDICARE A & B Discharge Planning Comments: PATIENT AND FAMILY INTERESTED IN IN PATIENT REHAB IF HE NEEDS IT AT TIME OF DISCHARGE. CM TO FOLLOW AND ASSIST. Correspondence Transcriber: Radha Woods DCP- Discharge Planning Updated by [id number]: Radha Woods on 11/03/18 9:[address] Patient Name: JESSICA CHURCH Admission Status: ER Accout number: [id number] Admission Date: 11-01-2018 : 1945 Admission Diagnosis: Attending: HIPOLITO WALTERS Current LOS: 2 Anticipated DC Date: Planned Disposition: Primary Insurance: MEDICARE A & B Discharge Planning Comments: CM MET WITH PATIENT AND HIS DAUGHTER CAMERON ABOUT DC PLANNING/NEEDS. CAMERON STATES DOESN'T KNOW IF ANY NEEDS AT THIS TIME. SHE SAID IF HE CONTINUES TO BE THIS WEAK HE MAY NEED IPR OR HH. CM WILL FOLLOW AND ASSIST NEEDED. CAMERON ALSO STATES HER FATHER HAS LEUKEMIA AND HAD CHEMO ABOUT A MONTH AGO. STATES HE LIVES AT HOME WITH HIS GRACIELA. Correspondence Transcriber: Radha Woods DCPIA - Discharge Planning Initial Assessment Updated by [id number]: Radha Woods on 11/03/18 10:10 am * PCP [facility] * Pharmacy [facility] * Preadmission Environment Home with Family * ADLs Independent * Equipment Cane CPAP Walker * Other Equipment CHAIR LIFT. * List name and contact numbers for known caregivers / representatives who currently or will assist patient after discharge: GRACIELA, , * Community resources currently utilized None * Has this patient been hospitalized within the prior 30 days at any hospital? No Coverage Notice Reviewer: [email or web address] Joanie Woods Notice Issued Date-Time: 11/03/2018 14:17 Notice Type: IM Discharge Notice Notice Delivered To: Patient Relationship to Patient: Superintendent Job Name: Delivery Method: HAND - Hand Delivered Ilda Days: Prior Verbal Notification: Recipient Understood Notice: Yes Recipient Signature: Yes Med Rec Note Co-signed by Attending: Coverage Notice Comment: Last DP export: 11/10/18 8:40 a Patient Name: JESSICA CHURCH Page [id number] at 1809 All edits/amendments must be made on the electronic document DICTATION DATE: 11/13/181807 FOIL OPERATOR: NORA 11/13/181807 RPT#: [id number] DC DATE:11/13/18 STATUS: DIS IN [facility] [address] [place] [address] END OF REPORT
[2018-11-14 17:08] LABS: ANA REFLEX - DIRECT Negative (Negative)
== END 2018-11-13 07:15 | DRG 871 ==
LOC: D.ER 17:14 → D.ICU 21:29 → D.EDHOLD 21:29 → D.M3 21:29 → D.ICU 11-10 11:40
PROVIDERS: Emergency Medicine; Family Medicine; Internal Medicine Gastroenterology; Internal Medicine Hematology & Oncology; Surgery; ADMIT Internal Medicine Nephrology; ATTEND Internal Medicine Nephrology
PROC: 02HV33Z Insertion of Infusion Device into Superior Vena Cava, Percutaneous Approach (ICD-10-PCS; principal; 2018-11-09)
PROC: B548ZZA Ultrasonography of Superior Vena Cava, Guidance (ICD-10-PCS; 2018-11-09)
DX: A41.9 Sepsis, unspecified organism (principal); J96.01 Acute respiratory failure with hypoxia; R40.2214 Coma scale, best verbal response, none, 24 hours or more after hospital admission; D61.818 Other pancytopenia; I42.9 Cardiomyopathy, unspecified; C91.11 Chronic lymphocytic leukemia of B-cell type in remission; B27.00 Gammaherpesviral mononucleosis without complication; K72.90 Hepatic failure, unspecified without coma; I48.91 Unspecified atrial fibrillation; I25.10 Atherosclerotic heart disease of native coronary artery without angina pectoris; K21.9 Gastro-esophageal reflux disease without esophagitis; K82.8 Other specified diseases of gallbladder; N40.0 Benign prostatic hyperplasia without lower urinary tract symptoms; R74.0 Nonspecific elevation of levels of transaminase and lactic acid dehydrogenase [LDH]; I48.0 Paroxysmal atrial fibrillation; Z66 Do not resuscitate; J44.9 Chronic obstructive pulmonary disease, unspecified; Z91.81 History of falling; Z79.01 Long term (current) use of anticoagulants; Z79.4 Long term (current) use of insulin; R40.2354 Coma scale, best motor response, localizes pain, 24 hours or more after hospital admission; R40.2134 Coma scale, eyes open, to sound, 24 hours or more after hospital admission